=== PATIENT | female | born 1950 | race Caucasian/White ===

== ENCOUNTER 2020-09-23 07:49 | Outpatient (REF) | payer MEDICARE, SELFPAY ==
--- NOTE | 2020-09-23 07:53 | MM_ITS ---
EXAMINATION: MM SCREENING DIGITAL BREAST TOMOSYNTHESIS, BILATERAL CLINICAL INFORMATION: Screening. Asymptomatic. The lifetime risk of breast cancer based on the Tyrer-Cuzick Model is 2%. COMPARISON: Mammography: 10/05/2019, 09/15/2019, 01/11/2014 TECHNIQUE: Digital breast tomosynthesis is performed in both the craniocaudal and mediolateral oblique views along with computer-aided detection (CAD). Synthesized 2D images are generated from the tomosynthesis. FINDINGS: There are scattered areas of fibroglandular density (ACR BI-RADS breast composition Category b). There are no significant masses, abnormal calcifications, or other abnormalities. The axilla and skin contours are unremarkable. MM/MM tomosynthesis screening BI IMPRESSION: No mammographic evidence of malignancy. ASSESSMENT: BI-RADS 1: Negative RECOMMENDATION: Routine annual mammography screening. This patient's information was entered into a reminder system with a target due date for their next mammogram.
== END 2020-09-23 07:50 | disposition home or self-care (01) ==
LOC: HO.MAMMO 07:49
PROVIDERS: PCP Internal Medicine; Visit Provider Internal Medicine
DX: Z12.31 Encounter for screening mammogram for malignant neoplasm of breast (principal)
CPT/HCPCS: 77063; 77067

== ENCOUNTER 2021-10-09 08:15 | Outpatient (REF) | payer MEDICARE, SELFPAY ==
--- NOTE | ~2021-10-09 | MM_ITS ---
EXAMINATION: MM SCREENING DIGITAL BREAST TOMOSYNTHESIS, BILATERAL CLINICAL INFORMATION: Screening. Asymptomatic. The lifetime risk of breast cancer based on the Tyrer-Cuzick Model is 2%. COMPARISON: Mammography: 09/23/2020, 10/05/2019, 09/15/2019, 01/11/2014 TECHNIQUE: Digital breast tomosynthesis is performed in both the craniocaudal and mediolateral oblique views along with computer-aided detection (CAD). Synthesized 2D images are generated from the tomosynthesis. Additional exaggerated right CC view is provided. FINDINGS: There are scattered areas of fibroglandular density (ACR BI-RADS breast composition Category b). There are no significant masses, abnormal calcifications, or other abnormalities. Parenchymal pattern is similar to prior studies. There is no developing density or architectural abnormality. The axilla and skin contours are unremarkable. No significant changes. MM/MM tomosynthesis screening BI IMPRESSION: No mammographic evidence of malignancy. ASSESSMENT: BI-RADS 1: Negative RECOMMENDATION: Routine annual mammography screening. This patient's information was entered into a reminder system with a target due date for their next mammogram.
== END 2021-10-09 08:16 | disposition home or self-care (01) ==
LOC: HO.MAMMO 08:15
PROVIDERS: PCP Internal Medicine; Visit Provider Internal Medicine
DX: Z12.31 Encounter for screening mammogram for malignant neoplasm of breast (principal)
CPT/HCPCS: 77063; 77067

== ENCOUNTER 2022-10-12 08:15 | Outpatient (REF) | payer MEDICARE, SELFPAY ==
--- NOTE | ~2022-10-12 | MM_ITS ---
EXAMINATION: MM SCREENING DIGITAL BREAST TOMOSYNTHESIS, BILATERAL CLINICAL INFORMATION: Screening. Asymptomatic. The lifetime risk of breast cancer based on the Tyrer-Cuzick Model is 1.7%. COMPARISON: Mammography: October 09, 2021 and studies dating back to January 11, 2014 TECHNIQUE: Digital breast tomosynthesis is performed in both the craniocaudal and mediolateral oblique views along with computer-aided detection (CAD). Synthesized 2D images are generated from the tomosynthesis. FINDINGS: There are scattered areas of fibroglandular density (ACR BI-RADS breast composition Category b). There are no significant masses, abnormal calcifications, or other abnormalities. MM/MM tomosynthesis screening BI IMPRESSION: No significant changes ASSESSMENT: BI-RADS 1: Negative RECOMMENDATION: Routine annual mammography screening. This patient's information was entered into a reminder system with a target due date for their next mammogram.
[2022-10-12 08:56] LABS: MANUAL DIFF FLAG NO
[2022-10-12 09:25] LABS: Basophils Absolute Auto 0.1 X10*3/uL (0.0-0.2); Basophils Percent Auto 0.8 % (0-2); Eosinophils Absolute Auto 0.1 X10*3/uL (0.0-0.4); Eosinophils Percent Auto 1.7 % (0-4); Hemoglobin 13.3 g/dl (12.0-16.0); Imm Gran Abs Auto 0.01 X10*3/uL (0.00-0.03); Imm Gran Pct Auto 0.2 % (0.0-0.4); Lymphocytes Absolute Auto 1.5 X10*3/uL (1.2-4.9); Lymphocytes Percent Auto 22.7 % (20-40); Mean Corpuscular HGB Conc 33.3 g/dl (31.0-35.0); Mean Corpuscular Volume 90.3 fL (80.0-98.0); Mean Platelet Volume 10.3 fL (9.4-12.3); Monocytes Absolute Auto 0.6 X10*3/uL (0.1-1.2); Neutrophils Absolute Auto 4.3 x10*3/uL (2.0-8.3); Neutrophils Percent Auto 65.6 % (45-73); Platelet Count 321 X10*3/uL (160-400); Red Blood Count 4.43 X10*6/uL (4.20-5.50); Red Cell Distribution Width 12.5 % (11.0-16.0); White Blood Count 6.6 X10*3/uL (4.8-10.8)
[2022-10-12 10:07] LABS: Alanine Aminotransferase 20 U/L (0-31); Albumin Level 4.6 g/dL (3.5-5.0); Alkaline Phosphatase 104 U/L (39-117); Anion Gap 17 (12-20); Aspartate Amino Transferase 29 U/L (5-31); Bilirubin Total 0.6 mg/dL (0.0-1.0); Blood Urea Nitrogen 23 mg/dL (9-16); Calcium 9.7 mg/dL (8.4-10.2); Carbon Dioxide 26 mmol/L (22-29); Chloride 101 mmol/L (96-108); Cholesterol 199 mg/dL; Estimated Glomerular Filt Rate 49; Glucose Fasting 89 mg/dL (60-99); HDL Cholesterol 73 mg/dL; LDL Cholesterol Calculated 107 mg/dl; Potassium 4.8 mmol/L (3.3-5.1); Sodium 139 mmol/L (135-145); Total Protein 6.9 g/dL (6.5-8.0); Triglycerides 99 mg/dL
[2022-10-12 10:25] LABS: Thyroid Stimulating Hormone 2.52 uIU/mL (0.32-4.0)
== END 2022-10-12 08:16 | disposition home or self-care (01) ==
LOC: HO.MAMMO 08:15
PROVIDERS: PCP Internal Medicine; Visit Provider Internal Medicine
DX: Z12.31 Encounter for screening mammogram for malignant neoplasm of breast (principal); Z13.0 Encounter for screening for diseases of the blood and blood-forming organs and certain disorders involving the immune mechanism; E78.5 Hyperlipidemia, unspecified; E03.9 Hypothyroidism, unspecified; I10 Essential (primary) hypertension
CPT/HCPCS: 36415; 77063; 77067; 80053; 80061; 84443; 85025

== ENCOUNTER 2023-07-11 14:09 | Outpatient (AMB) | payer MEDICARE, SELFPAY ==
--- NOTE | 2023-07-11 14:12 | A.OFFPC_ITS ---
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 Allergies No Known Allergies Allergy (Verified 03/08/22 09:56) Medication List - Last Reconciled 07/12/23 by Jonathan Mckeon MD No Known Home Meds Tobacco use date assessed: 07/11/23 Fall risk assessment: No Falls in past year Last assessed Fall Risk: 07/11/23 Dental Screening Dental Screen Date: 07/11/23 Did you have a dental visit in the last 12 months?: Yes Did you have a dental problem in the last 6 months where you did not have access to dental care?: No Was dental information given to patient?: Patient has dentist HPI Pain/Bruising/Swelling on Left Heel HPI Details injured right foot a week ago PFSH Surgical History History of partial hysterectomy Family History Father Myocardial infarction Mother Colon cancer Maternal Uncle Lung cancer Maternal Grandfather Throat cancer Social History Housing: House Alcohol intake: never Patient Tobacco Use Status: Former Tobacco user e-Cigarette/Vaping Use: Never Used Second Hand Smoke Exposure: Yes service: No Current occupational status: employed Cognitive needs: No Hearing needs: No Vision needs: Yes Questionnaire Thrive Questionnaire Date Thrive assessed: 07/11/23 I am a: Patient What is your living situation today?: I have a steady place to live Within the past 12 months, did the food you bought not last and you didn't have the money to get more?: Never true Within the past 12 months, did you worry whether your food would run out before you got money to buy more?: Never true Do you have trouble paying for medicines?: No Do you have trouble getting transportation to medical appointments?: No Do you have trouble paying your heating and electricity bill?: No Do you have trouble taking care of your child, family member or friend?: No Do you have trouble with day-to-day activities such as bathing, preparing meals, shopping, managing finances, etc.?: No Are you currently unemployed and looking for a job?: No Are you interested in more education?: No Please select the resources that you would like help with: None Currently or been in a relationship where the following occur: no concerns reported AUDIT C Alcohol Use Questionnaire (AUDIT-C) 1. How often do you have a drink containing alcohol?: Never 3. How often do you have six or more drinks on one occasion?: Never Total Score: 0 CHEPE-7 AMB Questionnaire CHEPE-7 Date CHEPE - 7 assessed: 07/11/23 Feeling nervous, anxious, or on edge: 0 = Not at all Not being able to stop or control worryin = Not at all Worrying too much about different things: 0 = Not at all Trouble relaxin = Not at all Being so restless that it is hard to sit still: 0 = Not at all Becoming easily annoyed or irritable: 0 = Not at all Feeling afraid as if something awful might happen: 0 = Not at all Total CHEPE-7 score (0-4 normal; 5-9 mild; 10-14 moderate; 15-21 severe): 0 Source: Developed by Drs. Marcio Hernandes, Tiffanie Yang, Álvaro Keen and colleagues, with an educational doroteo from [employer]. CHEPE-7 Assessment Billing CHEPE-7 Assessment Tool: CHEPE-7 Assessment 72736 Review of Systems Const Denies chills, Denies headache(s) and Denies weight loss ENT Denies headache(s) Card Denies chest pain, Denies syncope, Denies irregular heart rhythm and Denies dyspnea Resp Denies chest congestion, Denies cough and Denies dyspnea GI Denies abdominal pain, Denies change in stool character, Denies nausea and Denies vomiting Musc Denies deformity and Denies joint swelling Neuro Denies syncope and Denies headache(s) Physical exam (Primary Care) Vital Signs: Last Vital Signs Pulse 76 07/11/23 14:13 BP 122/70 07/11/23 14:13 Pulse Ox 97 07/11/23 14:13 Oxygen Delivery Method Room Air 07/11/23 14:13 BMI result Body Mass Index 24.6 Tobacco/Smoking Status: Tobacco use Status Tobacco use date assessed 07/11/23 07/11/23 14:20 Patient Tobacco Use Status Former Tobacco user 07/11/23 14:20 e-Cigarette/Vaping Use Never Used 07/11/23 14:20 Thrive Assessment: Date of Thrive Assessment Date Thrive assessed 07/11/23 07/11/23 14:25 Currently or been in a relationship where the following occur: no concerns reported Const General: cooperative, comfortable, no acute distress and alert Neck Neck: Yes no lymphadenopathy Thyroid: Thyroid normal Resp Effort & Inspection: normal respiratory effort Auscultation: clear to auscultation bilaterally Percussion: percussion normal Cardio Jugular venous distension: no JVD Palpation: normal PMI Rate: regular rate Rhythm: regular rhythm Heart sounds: S1 normal heart sound present and S2 normal heart sound present GI Inspection: Yes normal to inspection Palpation (GI): No hepatosplenomegaly present Skin General skin exam: no rashes or lesions noted Extrem Other: right foot swollen around ankle Assessment and Plan Assessment & Plan (1) Foot pain: Code(s): M79.673 - Pain in unspecified foot Plan: xr Orders: Orders XR foot LT 2V 07/11/23 M79.672 - Pain in left foot Coding Level of Care Code Est Pt Level 3 (16118) Diagnoses Foot pain M79.673 Additional Codes CHEPE-7 Assessment Billing - CHEPE-7 Assessment Tool: CHEPE-7 Assessment 46562 ([id number])
[2023-07-11 14:13] VITALS: BP 122/70; PULSE 76; O2SAT 97; BMI 24.6
== END 2023-07-11 14:34 | disposition home or self-care (01) ==
PROVIDERS: PCP Internal Medicine; Visit Provider Internal Medicine
DX: M79.673 Pain in unspecified foot (principal)
CPT/HCPCS: 99213

== ENCOUNTER 2023-07-11 14:43 | Outpatient (REF) | payer MEDICARE, SELFPAY ==
--- NOTE | ~2023-07-11 | XR_ITS ---
EXAMINATION: XR FOOT, LEFT CLINICAL INFORMATION: Pain. COMPARISON: None available. TECHNIQUE: AP, lateral, and oblique views of the left foot. FINDINGS: No acute fracture or subluxation. Mild multifocal degenerative osteoarthritis. No erosions. No abnormal soft tissue calcifications nor unexpected radiopaque foreign bodies. XR/XR foot LT 2V IMPRESSION: No acute fracture or malalignment. Mild multifocal degenerative osteoarthritis.
== END 2023-07-11 14:44 | disposition home or self-care (01) ==
LOC: HO.XRAY 14:43
PROVIDERS: PCP Internal Medicine; Visit Provider Internal Medicine
DX: M79.672 Pain in left foot (principal)
CPT/HCPCS: 73620

== ENCOUNTER 2023-09-12 10:19 | Outpatient (AMB) | payer MEDICARE, SELFPAY ==
--- NOTE | 2023-09-12 10:44 | MHC.OFFVIS ---
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 Patient reports approx in may while chasing her grand kids in the yard bear footed and hurt her foot with a root that was growing out of the grown. Reports she has had pain since. She was limping for 3 weeks after with constant swelling. In the last 2 weeks her pain is now on her lateral aspect of her ankle. Seen with PCP on 07/11/23 who referred patient for a further evaluation. Denies numbness or tingling in toes. Allergies No Known Allergies Allergy (Verified 09/12/23 10:50) Medication List - Last Reconciled 09/12/23 by Estela Antonio MD No Known Home Meds HPI HPI Comments History of Present Illness Details Last May, while running in backyard, banged/hit heel on a piece of wood. No open wound or laceration. It ached but not sharp pain. Since then, the whole inside of foot was swollen. First time to put pressure on foot without too much pain. But also now going around to lateral. No boot yet. 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 MSK: Tender around left lateral malleolus, with swelling. Slightly tender around left medial malleolus. Swelling and warmth on left dorsal foot. No tenderness over achilles or plantar fascia. No calf tenderness. No ankle instability. Strength is 5/5 in all muscle groups tested. No increased tone noted. Neurological: Neurologic examination of the upper and lower extremities was nonfocal with intact sensation, muscle stretch reflexes and without focal motor deficits . Ramey?s negative bilaterally. Babinski was down going bilaterally. Clonus was negative. Gait is antalgic without loss of balance. Results Reviewed Results Reviewed: I independently reviewed the results of the following: Foot xray normal. Ordering Physician: Jonathan Mckeon MD Date of Service: 07/11/23 Procedure(s): XR foot LT 2V Accession Number(s): [id number] cc: Jonathan Mckeon MD~ EXAMINATION: XR FOOT, LEFT CLINICAL INFORMATION: Pain. COMPARISON: None available. TECHNIQUE: AP, lateral, and oblique views of the left foot. FINDINGS: No acute fracture or subluxation. Mild multifocal degenerative osteoarthritis. No erosions. No abnormal soft tissue calcifications nor unexpected radiopaque foreign bodies. XR/XR foot LT 2V IMPRESSION: No acute fracture or malalignment. Mild multifocal degenerative osteoarthritis. I reviewed records from the following: PCP Assessment & Plan Assessment & Plan (1) Sprain of left ankle: Code(s): S93.402A - Sprain of unspecified ligament of left ankle, initial encounter Qualifiers: Encounter type: initial encounter Involved ligament of ankle: tibiofibular ligament Qualified Code(s): S93.432A - Sprain of tibiofibular ligament of left ankle, initial encounter Plan Suspect that she had a left medial ankle sprain last May that was unfortunately not treated completely. It now involves lateral ankle. We will put her on a short walking boot. To wear while she is up and about. Can remove and elevate the leg when she is resting or lying down. Taught her how to use an ice bucket at least once a day. Will start her on ibuprofen 600 mg t.i.d. for 7 days, to take with full stomach, discuss side effects. Will do follow-up ankle x-ray today. Assessment and plan discussed with patient, and patient was agreeable. All questions were answered thoroughly. Follow-up in 2 months. Estela Antonio MD, JUDSON Board Certified, [place] Board [employer] and Rehabilitation (ABPMR) Board Certified, [place] Board [employer] Electrodiagnostic [employer] (ABEM) Orders: Orders XR ankle LT 2V Today S93.402A - Sprain of unspecified ligament of left ankle, initial encounter Medications: New ibuprofen 600 mg PO TID 21 tabs 0RF 7 days S93.402A - Sprain of unspecified ligament of left ankle, initial encounter Coding Level of Care Code New Pt Level 4 (29368) Diagnoses Sprain of tibiofibular ligament of left ankle, initial encounter S93.432A Encounter type: initial encounter Involved ligament of ankle: tibiofibular ligament
[2023-09-12 10:45] VITALS: BMI 26.1
== END 2023-09-12 11:21 | disposition home or self-care (01) ==
PROVIDERS: PCP Internal Medicine; Visit Provider Physical Medicine & Rehabilitation
DX: S93.432A Sprain of tibiofibular ligament of left ankle, initial encounter (principal)
CPT/HCPCS: 99204

== ENCOUNTER 2023-09-12 10:19 | Outpatient (REF) | payer MEDICARE, SELFPAY ==
--- NOTE | ~2023-09-12 | XR_ITS ---
EXAMINATION: XR ANKLE, LEFT CLINICAL INFORMATION: Sprain of unspecified ligament. COMPARISON: Left foot 07/11/2023. TECHNIQUE: AP, lateral, and mortise views of the left ankle. FINDINGS: Minimal plantar calcaneal spurring. Moderate joint effusion. No acute displaced fracture. Bones are diffusely demineralized. XR/XR ankle LT min 3V IMPRESSION: Moderate joint effusion. No displaced fracture. Recommend follow up imaging in 10-14 days if fracture is suspected.
== END 2023-09-12 10:20 | disposition home or self-care (01) ==
LOC: HO.HOSX 10:19
PROVIDERS: PCP Internal Medicine; Visit Provider Physical Medicine & Rehabilitation
DX: S93.432D Sprain of tibiofibular ligament of left ankle, subsequent encounter (principal); X58.XXXD Exposure to other specified factors, subsequent encounter
CPT/HCPCS: 73610; 99202

== ENCOUNTER 2023-09-26 10:02 | Outpatient (REF) | payer MEDICARE, SELFPAY ==
--- NOTE | ~2023-09-26 | XR_ITS ---
EXAMINATION: XR ANKLE, LEFT CLINICAL INFORMATION: Ankle sprain COMPARISON: 09/12/2023 TECHNIQUE: AP, lateral, and mortise views of the left ankle. FINDINGS: No fracture. Alignment is anatomic. No erosions. Joint spaces are maintained. Persistent soft tissue effusion. XR/XR ankle LT min 3V IMPRESSION: Persistent soft tissue effusion. No acute fracture.
== END 2023-09-26 10:03 | disposition home or self-care (01) ==
LOC: HO.HOSX 10:02
PROVIDERS: Visit Provider Physical Medicine & Rehabilitation
DX: S93.432A Sprain of tibiofibular ligament of left ankle, initial encounter (principal); X58.XXXA Exposure to other specified factors, initial encounter; Y93.9 Activity, unspecified; Y92.9 Unspecified place or not applicable; Y99.9 Unspecified external cause status
CPT/HCPCS: 73610

== ENCOUNTER 2023-10-14 08:24 | Outpatient (REF) | payer MEDICARE, SELFPAY | END 2023-10-14 08:25 | disposition home or self-care (01) | LOC: HO.MAMMO 08:24 | PROVIDERS: PCP Internal Medicine; Visit Provider Internal Medicine | DX: Z12.31 Encounter for screening mammogram for malignant neoplasm of breast (principal) | CPT/HCPCS: 77063; 77067 ==

== ENCOUNTER → 2023-10-14 08:30 | Outpatient (BNV) | payer MEDICARE, SELFPAY | PROVIDERS: PCP Internal Medicine; Visit Provider Radiology Diagnostic Radiology | DX: Z12.31 Encounter for screening mammogram for malignant neoplasm of breast (principal) | CPT/HCPCS: 77063; 77067 ==

== ENCOUNTER 2023-11-13 09:48 | Outpatient (AMB) | payer MEDICARE, SELFPAY ==
--- NOTE | 2023-11-13 09:53 | A.OFFVIS_ITS ---
Intake Vital Signs 11/13/23 09:54 Height 5 ft 4 in Weight 152 lb BMI 26.1 Intake Visit Reasons: ov-Left foot pain heel and arch Intake Note: Hali is a 73 year old female who presents today for a follow up of her left ankle sprain. Injury happened in May of 2023, when she was barefoot in the yard and tripped on a tree root. At her last visit she was fit in a walking boot, given a script for Ibuprofen 800mg, instructed to implement ice and elevation. She has been wearing her boot as directed but discontinued it over the weekend, as she was finding discomfort. She feels that the ankle is feeling better but is experiencing stiffness and discomfort in her arch and toes. She reports that she stepped off a curb wrong and twisted the right knee, she is having pain, swelling and stiffens of the knee. her pain is felt primarily on the medial aspect of the knee. Allergies No Known Allergies Allergy (Verified 09/12/23 10:50) HPI HPI Comments History of Present Illness Details Last May, while running in backyard, banged/hit heel on a piece of wood. No open wound or laceration. It ached but not sharp pain. Since then, the whole inside of foot was swollen. First time to put pressure on foot without too much pain. But also now going around to lateral. No boot yet. No numbness No weakness Suspected that she had a left medial ankle sprain last May that was unfortunately not treated completely. It involved lateral ankle by the time I saw her. Put her on a short walking boot. To wear while she is up and about. Can remove and elevate the leg when she is resting or lying down. Taught her how to use an ice bucket at least once a day. Will start her on ibuprofen 600 mg t.i.d. for 7 days, to take with full stomach, discuss side effects. Will do follow-up ankle x-ray today. Patient says that she started feeling better on the ankle but then started feeling stiffness on the bottom of left foot. She is discontinued the walking boot 6 days ago. Pain on the plantar aspect is worse when she gets up from sitting or lying down position, improves as she walks more. Three weeks ago, she also twisted right knee. Instant swelling noted which has somewhat improved. Denies redness or warmth. Pain with stepping especially stairs. 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 MSK: No more tenderness around malleoli. No more swelling. No tenderness over achilles. Tender on left plantar fascia. No calf tenderness. No ankle instability. Right knee swelling/effusion noted, but no redness or warmth. Tender medially. Positive mild valgus stress test. Negative varus stress. Negative Andreia's sign. Negative anterior or posterior drawer sign. Strength is 5/5 in all muscle groups tested. No increased tone noted. Neurological: Neurologic examination of the upper and lower extremities was nonfocal with intact sensation, muscle stretch reflexes and without focal motor deficits . Ramey?s negative bilaterally. Babinski was down going bilaterally. Clonus was negative. Gait is antalgic due to left plantar fascia without loss of balance. Assessment & Plan Assessment & Plan (1) Acute knee pain: Code(s): M25.569 - Pain in unspecified knee Qualifiers: Laterality: right Qualified Code(s): M25.561 - Pain in right knee Plan: 3 weeks ago, twisted right knee. Still swollen today with pain on medial aspect. No instability on exam. Ice, relative rest and elevate when able. Will refer to PT. We talked about need for MRI. Since symptoms improving, we will continue to treat conservatively as mentioned earlier. Reevaluate 4 weeks if further imaging needed. Left knee x-ray today to rule out acute fracture, though low suspicion. (2) Plantar fasciitis of left foot: Code(s): M72.2 - Plantar fascial fibromatosis Plan: Ankle sprain improved with walking boot but now has plantar fasciitis. Advised use of frozen water bottle to ice and stretch the plantar fascia, BID. Or to use a tennis ball to stretch it. Will give compression sock to wear during the day. Plan Assessment and plan discussed with patient, and patient was agreeable. All questions were answered thoroughly. Follow-up 4 weeks or call sooner if needed. Estela Antonio MD, JUDSON Board Certified, [place] [employer] and Rehabilitation (ABPMR) Board Certified, [place] [employer] Electrodiagnostic [employer] (ABEM) Orders: Orders XR knee RT 3V Today M25.569 - Pain in unspecified knee PT Evaluation and Treatment Today M25.569 - Pain in unspecified knee Coding Level of Care Code Est Pt Level 4 (13654) Diagnoses Acute pain of right knee M25.561 Laterality: right Plantar fasciitis of left foot M72.2
[2023-11-13 09:54] VITALS: BMI 26.1
== END 2023-11-13 11:03 | disposition home or self-care (01) ==
PROVIDERS: PCP Internal Medicine; Visit Provider Physical Medicine & Rehabilitation
DX: M25.561 Pain in right knee (principal); M72.2 Plantar fascial fibromatosis
CPT/HCPCS: 99214

== ENCOUNTER 2023-11-13 09:48 | Outpatient (REF) | payer MEDICARE, SELFPAY ==
--- NOTE | ~2023-11-13 | XR_ITS ---
EXAMINATION: XR KNEE, RIGHT CLINICAL INFORMATION: Pain and swelling COMPARISON: None available. TECHNIQUE: Three views of the right knee. FINDINGS: No fracture or dislocation. No suprapatellar joint effusion. Joint spaces are maintained. Mild chondrocalcinosis. No localized soft tissue swelling the anterior knee. XR/XR knee RT 3V IMPRESSION: Mild degenerative changes of the right knee.
== END 2023-11-13 09:49 | disposition home or self-care (01) ==
LOC: HO.HOSX 09:48
PROVIDERS: PCP Internal Medicine; Visit Provider Physical Medicine & Rehabilitation
DX: M25.561 Pain in right knee (principal); M72.2 Plantar fascial fibromatosis
CPT/HCPCS: 73562; 99212

== ENCOUNTER 2024-10-19 08:28 | Outpatient (REF) | payer MEDICARE, SELFPAY | END 2024-10-19 08:29 | disposition home or self-care (01) | LOC: HO.MAMMO 08:28 | PROVIDERS: PCP Internal Medicine; Visit Provider Internal Medicine | DX: Z12.31 Encounter for screening mammogram for malignant neoplasm of breast (principal) | CPT/HCPCS: 77063; 77067 ==

== ENCOUNTER → 2024-10-19 08:45 | Outpatient (BNV) | payer MEDICARE, SELFPAY | PROVIDERS: PCP Internal Medicine; Visit Provider Internal Medicine | DX: Z12.31 Encounter for screening mammogram for malignant neoplasm of breast (principal) | CPT/HCPCS: 77063; 77067 ==

== ENCOUNTER 2024-12-29 09:51 | Outpatient (AMB) | payer MEDICARE, SELFPAY ==
--- NOTE | 2024-12-29 09:59 | A.OFFPC_ITS ---
Vital Signs 12/29/24 10:01 Height 5 ft 4 in Weight 158 lb 2 oz BMI 27.1 BP 136/60 Blood Pressure Location Lt brachial Position Sitting Pulse 92 Pulse Source Pulse Oximeter Temp 97.1 F Temp Source Temporal Artery Scan Pulse Oximetry (%) 99 Oxygen Delivery Method Room Air Intake Visit Reasons: mireya Dr Mckeon Intake Note: Patient is here today for MIREYA from Dr Mckeon Assistant Customer Service Manager Required: No Director Of Blood: Not Required per policy Accompanied by: Self / Same As Patient Allergies No Known Allergies Allergy (Verified 12/29/24 10:00) Medication List - Last Reconciled 12/29/24 by Portia Rodriguez PA-C multivitamin (Daily Multi-Vitamin tablet) 1 tab PO DAILY Tobacco use date assessed: 12/29/24 Fall risk assessment: No Falls in past year Last assessed Fall Risk: 12/29/24 Dental Screening Dental Screen Date: 12/29/24 Did you have a dental visit in the last 12 months?: Yes Did you have a dental problem in the last 6 months where you did not have access to dental care?: No Was dental information given to patient?: Patient has dentist HPI mireya Dr Mckeon HPI0 Details 74-year-old female with past medical his tory of plantar fasciitis last seen 07/[address] Mckeon coming in for transfer of care.? In review of the n otes, patient has been following with orthopedics for plantar fasciitis.?She has colonoscopy scheduled for 03/2025. Presenting with sciatica that began two months ago with persistent symptoms described as constant pain and shooting pain into the leg, exacerbated by specific movements. She does have a history of sciatica pain however has not had a flare in many years. No prior formal assessments or treatments outside home-based exercises, leading to no current improvement. She also complains of nausea and reflux symptoms associated with certain foods such as carbohydrates and dairy products. Her symptoms are consistent with GERD. Potential underlying factors include mild previous lactose intolerance and consuming large meals. 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 1. Little interest or pleasure in doing things: not at all 2. Feeling down, depressed, or hopeless: not at all 3. Trouble falling or staying asleep, or sleeping too much: not at all 4. Feeling tired or having little energy: not at all 5. Poor appetite or overeating: not at all 6. Feeling bad about yourself - or that you are a failure or have let yourself or your family down: not at all 7. Trouble concentrating on things, such as reading the newspaper or watching television: not at all 8. Moving or speaking so slowly that other people could have noticed. Or the opposite - being so fidgety or restless that you have been moving around a lot more than usual: not at all 9. Thoughts that you would be better off or of hurting yourself in some way: not at all Total score: 0 Depression Screening Interpretation: Negative Depression Screening Done: Yes Source: Developed by Drs. Marcio Hernandes, Tiffanie Yang, Álvaro Keen and colleagues, with an educational doroteo from [employer]. Thrive Questionnaire Date Thrive assessed: 12/29/24 I am a: Patient What is your living situation today?: I have a steady place to live Within the past 12 months, did the food you bought not last and you didn't have the money to get more?: Never true Within the past 12 months, did you worry whether your food would run out before you got money to buy more?: Never true Do you have trouble paying for medicines?: No Do you have trouble getting transportation to medical appointments?: No Do you have trouble paying your heating and electricity bill?: No Do you have trouble taking care of your child, family member or friend?: No Do you have trouble with day-to-day activities such as bathing, preparing meals, shopping, managing finances, etc.?: No Are you currently unemployed and looking for a job?: No Are you interested in more education?: No Please select the resources that you would like help with: None Currently or been in a relationship where the following occur: No concerns reported THRIVE Score: 0 AUDIT C Alcohol Use Questionnaire (AUDIT-C) 2. How many drinks containing alcohol do you have on a typical day when you are drinking?: 1 or 2 3. How often do you have six or more drinks on one occasion?: Never Total Score: 0 CHEPE-7 AMB Questionnaire CHEPE-7 Date CHEPE - 7 assessed: 12/29/24 Feeling nervous, anxious, or on edge: 0 = Not at all Not being able to stop or control worryin = Not at all Worrying too much about different things: 0 = Not at all Trouble relaxin = Not at all Being so restless that it is hard to sit still: 0 = Not at all Becoming easily annoyed or irritable: 0 = Not at all Feeling afraid as if something awful might happen: 0 = Not at all Total CHEPE-7 score (0-4 normal; 5-9 mild; 10-14 moderate; 15-21 severe): 0 Source: Developed by Drs. Marcio Hernandes, Tiffanie Yang, Álvaro Keen and colleagues, with an educational doroteo from [employer]. CHEPE-7 Assessment Billing CHEPE-7 Assessment Tool: CHEPE-7 Assessment 60903 Review of Systems Const Denies body aches, Denies chills, Denies fever(s) and Denies poor appetite Eyes Reports no additional complaints ENT Denies dysphagia and Denies dizziness Card Denies chest pain, Denies lightheadedness and Denies dyspnea Resp Denies dyspnea GI Denies abdominal pain, Denies constipation, Denies dysphagia, Reports dyspepsia, Denies diarrhea, Denies nausea and Denies vomiting Reports no additional complaints Musc Reports no additional complaints and Denies abnormal gait Skin/Breast Reports system reviewed and no additional complaints, except as documented Neuro Denies abnormal gait and Denies dizziness Psych Reports no additional complaints Physical exam (Primary Care) Vital Signs: Last Vital Signs Temp 97.1 F 12/29/24 10:01 Pulse 92 12/29/24 10:01 BP 136/60 12/29/24 10:01 Pulse Ox 99 12/29/24 10:01 Oxygen Delivery Method Room Air 12/29/24 10:01 BMI result Body Mass Index 27.1 Tobacco/Smoking Status: Tobacco use Status Tobacco use date assessed 12/29/24 12/29/24 10:06 Patient Tobacco Use Status Former Tobacco user 12/29/24 10:06 e-Cigarette/Vaping Use Never Used 12/29/24 10:06 PHQ-9: PHQ-9 Score PHQ-9: Total score 0 12/29/24 10:08 Depression Screening Interpretation: Negative Thrive Assessment: Date of Thrive Assessment Date Thrive assessed 12/29/24 12/29/24 10:06 Currently or been in a relationship where the following occur: No concerns reported Const General: cooperative, healthy appearing, comfortable and no acute distress Orientation/consciousness: patient oriented x3 HENMT Head: Yes normocephalic Ears: hearing grossly normal bilaterally General nose exam: Normal external nose present Eyes General: appearance normal, both eyes and all related structures Conjunctivae: conjunctivae normal Neck Neck: Yes full ROM and Yes no lymphadenopathy Resp Effort & Inspection: normal respiratory effort Auscultation: clear to auscultation bilaterally, no crackles, no rales, no rhonchi and no wheezes Cardio Rate: regular rate Rhythm: regular rhythm Back/Spine/Pelvis Other: Tenderness to palpation over right lumbar paraspinal muscles. Positive right straight leg raise test. Intact strength, sensation of bilateral lower extremities Skin General skin exam: no rashes or lesions noted Neuro General: patient oriented x3 Gait exam (Neuro): Normal gait present Extrem General: Yes normal to inspection, Yes full ROM and No edema Psych Affect: normal affect Attitude: cooperative Insight: Good insight present (Psych) Judgement: Good judgement present (Psych) Coding Level of Care Code Est Pt Level 3 (98311) Diagnoses Low back pain M54.50 GERD (gastroesophageal reflux disease) K21.9 Screening for hypercholesterolemia Z13.220 Additional Codes CHEPE-7 Assessment Billing - CHEPE-7 Assessment Tool: CHEPE-7 Assessment 70178 ([id number]) Assessment & Plan Assessment & Plan (1) Low back pain: Code(s): M54.50 - Low back pain, unspecified Category: Medical Plan: For sciatica, an x-ray has been ordered, and physical therapy is the immediate treatment plan to address nerve compression and alleviate pain. Advised to use heat, Tylenol, ibuprofen as needed for pain. Offered a muscle relaxer today which was declined. (2) GERD (gastroesophageal reflux disease): Code(s): K21.9 - Gastro-esophageal reflux disease without esophagitis Category: Medical Plan: Avoid trigger foods such as citrus, tomato products, soda, caffeine, spicy foods and other foods that may be irritating to your stomach. Avoid laying flat 3-4 hours after eating and elevate the head of the bed 30 degrees to prevent acid from moving into the esophagus. Plan to start on omeprazole 20 mg daily for symptomatic relief. (3) Screening for hypercholesterolemia: Code(s): Z13.220 - Encounter for screening for lipoid disorders Category: Medical Plan: Blood Work order Plan This note was constructed using voice recognition software. While every effort has been made to ensure accuracy and baseball club manager, still areas may have been included sometimes these areas may affect the content or meeting of the given symptoms. Total time spent caring for the patient today was 30 minutes. This includes time spent before the visit reviewing the chart, time spent during the visit, and time spent after the visit and documentation. Patient was informed and verbally consented to the use of an ambient scribe for clinic note documentation during this visit. Orders: Orders XR lumbar spine 2-3V Today M54.50 - Low back pain, unspecified PT Evaluation and Treatment Today M54.50 - Low back pain, unspecified Complete Blood Count Auto Diff Today Z00.00 - Encounter for general adult medical examination without abnormal findings Comprehensive Met. Panel Today Z00.00 - Encounter for general adult medical examination without abnormal findings TSH reflex Free T4 Today Z00.00 - Encounter for general adult medical examination without abnormal findings Transglutaminase Ab IgG Today K21.9 - Gastro-esophageal reflux disease without esophagitis Lipid Panel Today Z13.220 - Encounter for screening for lipoid disorders Vitamin B12 and Folate Today Z00.00 - Encounter for general adult medical examination without abnormal findings Vitamin D 25-OH Total Today Z00.00 - Encounter for general adult medical examination without abnormal findings XR DEXA axial skeleton Today Z78.0 - Asymptomatic menopausal state Medications: New omeprazole 20 mg PO DAILY 90 caps 1RF
[2024-12-29 10:01] VITALS: BP 136/60; PULSE 92; TEMP 36.2; O2SAT 99; BMI 27.1
--- OUTSIDE RECORDS SUMMARY | 2024-12-29 11:01 | XMS_ITS ---
Author Organization [facility] Address [address] [place] [address] Care Team Providers Care Dragger Name Role Phone Jonathan Mckeon MD Primary Care Provider Marcio Eli Unavailable [phone] Allergies No Known Allergies REASON FOR VISIT [...] history of malignant neoplasm of gastrointestinal tract (160065459) Family history of colon cancer in mother (Z80.0) Active confirmed Problem Colon cancer screening (186214378) Colon cancer screening (Z12.11) Active confirmed Problem Preprocedural examination (660801727441854) Preprocedural examination (Z01.818) Active confirmed Vital Signs Temperature 96.9 degrees Fahrenheit 12/24/19 25 Blood pressure systolic 001 mm Hg 12/24/19 25 Blood pressure diastolic 01 mm Hg 025 Height 65 in 12/23/2024 Weight 158.8 lbs 12/23/2024 BMI 26.42 kg/m2 12/23/2024 Procedures Procedure Date Ordered Date Performed Result Body Sit e COLONOSCOPY 12/23/2024 N/A Encounters Encounter Location Date Provider Diagnosis [facility] [address] [place] [address] 12/23/2024 Marcio Guthrie Family history of co [...] COLONOSCOPY 12/23/2024 Next Appt Details Provider Name:Marcio Guthrie , 03/17/2025 07:30:00 AM, [address] [place] [address] , [place], [place], [phone], Progress Notes * JENIFER WOODSDOB:[birth year] (74 yo F)Acc No.[id number]:12/23/2024 Progress Notes Patient:?JENIFER WOODS Provider:?Marcio Guthrie MD :1950???Age:74 Y???Sex:Female D ate:12/23/2024 Address:[address] [place], [place] [id number] Pcp:Jonathan Mckeon MD Subjective: * Chief Complaints: * ???1. Patient presents today for a SCREENING COLON. * Medical History:?Denies [place],D M,CVA,Lung disease,renal disease, Reports a negative colonoscopy at [facility] in approx 2003, Lactose-intolerant. * Surgical History:?hysterecto my and removal of 1 ovary 1983, broken wrist left . * Family History:?Mother: dece ased, from colon cancer at age 72, diagnosed with Colon cancer.? No family history of liver cancer,. * Social History:?Tobacco Use:?Tobacco Use/Smoking?Are you a: nonsmoker.?Drugs/Alcohol:?Alcohol Screen?Points: 1, Interpretation: Negative.?Miscellaneous:?Marital status: . 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 ???Nonsmoker; no sig alcohol. * Medications:?Taking Multi Vi tamin/Minerals Tablet Orally , Discontinued MoviPrep 100 GM Solution as directed Orally as directed , Medication List reviewed and reconciled with the patient * Allergies:?N.K.D.A. Objective: * Vitals:?Wt: 158.8 lbs, Ht: 6 5 in, BMI: 26.42 Index, BP: 001/01 mm Hg, Temp: 96.9, Wt-k.03. Assessment: * Assessment: 1.?Family history of colon c ancer in mother - Z80.0 (Primary)???2.?Colon cancer screening - Z12.11???3.?Preprocedural examination - Z01.818??? Plan: * Treatment: 2.?Colon cancer screening?Procedure: COLONOSCOPY* with MACsched for 03/17/25 at 7:30 ammiralax * Immunizations:? Influenza (Not administered - Refused: Patient decision) * Procedure Codes:?66955 DIAGN OSTIC COLONOSCOPY * Preventive Medicine:? ??Counseling:?Care goal follow-up plan:?Above Normal BMI Follow-up?Dietary management education, guidance, and counseling,?BMI management provided?Yes.? ??Urinary Incontinence:?Urinary Incontinence?Assessment:?Absent,?Plan of care documented:?No, reason not specified.? ??Screenings:?Fall Risk Screening?Fall Risk Assessment:?One fall with injury in the past year,?Screening:?One fall with injury in the past year,?Assessment:?Not performed, no reason specified,?Plan of Care:?Documented,?Type of fall plan of care:?Balance, strength and gait training or instruction provided.? * * The named appointment provid er may or may not be the originator of this progress note, and it is not deemed complete until electronically signed by the appointment provider. Sign off status: Pending * Provider:?Marcio Guthrie MD Date:? 025 Generated for Marvin ortega/Nadege/Aguilaritting on:?12/29/2024 11:01 AM EDT
--- OUTSIDE RECORDS SUMMARY | 2024-12-29 11:02 | XMS_ITS | Patient Health Record ---
Author Organization [facility] Address [address] [place] [address] Care Team Providers Care Event Attendant Name Role Phone Linda BALES, Jonathan Primary Care Provider Marcio Eli Unavailable [phone] Allergies No Known Allergies Reason For Referral No Information Medications Medication SIG (Take, Route, Fr equency, Duration) Notes Start Date End Date Status Multi Vitamin/Minerals Orally Active Immunizations Vaccine Route Administration Date Status Comme nts Influenza Unknown 12/23/2024 Refused Problems Problem Type SNOMED Code ICD Code Onset Dates Problem Status W/U Status Risk Notes Problem Pre-surgery evaluation (256266291) Other specified pre-operative examination (V72.83) Active confirmed Problem Colon cancer screening (610745383) Colon cancer screening (V76.51) Active confirmed Problem Colon cancer screening (060898589) Colon cancer screening (Z12.11) Active confirmed Problem Preprocedural examination (540948218400096) Preprocedural examination (Z01.818) Active confirmed Problem Family history of malignant neoplasm of gastrointestinal tract (677510400) Family history of colon cancer in mother (Z80.0) Active confirmed Vital Signs Temperature 96.9 degrees Fahrenheit 12/23/2024 Blood pressure diastolic 01 mm Hg 12/23/2024 Height 65 in 12/23/2024 Blood pressure systolic 001 mm Hg 12/23/2024 Weight 158.8 lbs 12/23/2024 BMI 26.42 kg/m2 12/23/2024 Procedures Procedure Date Ordered Date Performed Result Body Sit e COLONOSCOPY 12/23/2024 N/A Encounters Encounter Location Date Provider Diagnosis [facility] [address] [place] [address] 12/23/2024 Marcio Guthrie Family history of co joseph cancer in mother Z80.0 ; Colon cancer screening Z12.11 and Preprocedural examination Z01.818 Assessments Encounter Date Diagnosis (ICD Code) Assessment Notes Treatment Notes Treatment Clinical Notes Section Notes 12/23/2024 Colon cancer screening (ICD-10 - Z12.11) 12/23/2024 Family history of colon cancer in mother (ICD-10 - Z80.0) 12/23/2024 Preprocedural examination (ICD-10 - Z01.818) Plan Of Treatment Pending Test Test Name Order Date COLONOSCOPY 12/23/2024 Future Test Test Name Order Date COLONOSCOPY 05/25/2014 Next Appt Details Provider Name:Marcio Guthrie , 03/17/2025 07:30:00 AM, [address] [facility] , [place], [place], [id number], Insurance Providers Payer Name Payer Address Payer Phone Subscriber Number Group Number Insured Name Patient Relationship to Insured Coverage Start Date Coverage End Date [facility] [address] [place] [phone] [id number] JENIFER WOODS Self - patient is the insured 4 Medical (General) History Medical History History ICD Code Denies [place],DM,CVA,Lung disease,renal dise ase Reports a negative colonoscopy at [facility] in approx 2003 Lactose-intolerant Surgical History Surgery Date(Month/Year) broken wrist left hysterectomy and removal of 1 ovary 1983
== END 2024-12-29 10:39 | disposition home or self-care (01) ==
LOC: HO.HMCH 09:51
PROVIDERS: PCP Internal Medicine
DX: M54.50 Low back pain, unspecified (principal); K21.9 Gastro-esophageal reflux disease without esophagitis; Z13.220 Encounter for screening for lipoid disorders

== ENCOUNTER 2024-12-29 09:51 | Outpatient (REF) | payer MEDICARE, SELFPAY ==
--- NOTE | ~2024-12-29 | XR_ITS ---
CLINICAL HISTORY: M54.50 - Low back pain, unspecified Three views of the lumbar spine. COMPARISON: None FINDINGS: Five fnb-agm-bdnutjr lumbar type vertebral bodies. Dextrocurvature of the mid lumbar spine. Grade 1 anterolisthesis of L2 on L3 and L4 on L5. No pars defects identified. Vertebral body heights are maintained. Multilevel loss of disc space height with marginal osteophytes and facet joint arthrosis. Neural foraminal narrowing most pronounced at L5-S1. Visualized portions of the bones of the pelvis appear intact. Pelvic phleboliths present. IMPRESSION: 1. No radiographic evidence of acute injury to the lumbar spine. 2. Dextrocurvature of the mid lumbar spine. 3. Grade 1 anterolisthesis of L2 on L3 on L4 on L5. No pars defects identified. 4. Advanced multilevel degenerative changes of the lumbar spine. This document has been electronically signed by: Ian Trejo MD on 12/30/2024 12:58:41
== END 2024-12-29 09:52 | disposition home or self-care (01) ==
LOC: HO.XRAY 09:51
PROVIDERS: PCP Internal Medicine
DX: M54.50 Low back pain, unspecified (principal); K21.9 Gastro-esophageal reflux disease without esophagitis; Z13.220 Encounter for screening for lipoid disorders
CPT/HCPCS: 72100; 96127; 99212

== ENCOUNTER → 2024-12-29 10:50 | Outpatient (BNV) | payer MEDICARE, SELFPAY | PROVIDERS: PCP Internal Medicine; Visit Provider Radiology Diagnostic Radiology | DX: M51.360 Other intervertebral disc degeneration, lumbar region with discogenic back pain only (principal) | CPT/HCPCS: 72100 ==

== ENCOUNTER 2025-01-13 09:30 | Outpatient (REF) | payer MEDICARE, SELFPAY ==
[2025-01-13 10:03] LABS: MANUAL DIFF FLAG NO
--- OUTSIDE RECORDS SUMMARY | 2025-01-13 10:17 | XMS_ITS ---
Author Organization [facility] Address [address] [place] [address] Care Team Providers Care Wedding Day Coordinator Name Role Phone Jonathan Mckeon MD Primary Care Provider Marcio Eli Unavailable [phone] Allergies No Known Allergies REASON FOR VISIT Patient presents today for a SCREENING COLON Medications Medication SIG (Take, Route, Fr equency, Duration) Notes Start Date End Date Status Multi Vitamin/Minerals Orally Active Immunizations Vaccine Route Administration Date Status Comme nts Influenza Unknown 12/23/2024 Refused Problems Problem Type SNOMED Code ICD Code Onset Dates Problem Status W/U Status Risk Notes Problem Family history o f colon cancer in mother (Z80.0) Active confirmed Problem Colon cancer screening (819017648) Colon cancer screening (Z12.11) Active confirmed Problem Preprocedural examination (426814579415347) Preprocedural examination (Z01.818) Active confirmed Vital Signs Temperature 96.9 degrees Fahrenheit 12/24/19 25 Blood pressure systolic 001 mm Hg 12/24/19 25 Blood pressure diastolic 01 mm Hg 025 Height 65 in 12/23/2024 Weight 158.8 lbs 12/23/2024 BMI 26.42 kg/m2 12/23/2024 Procedures Procedure Date Ordered Date Performed Result Body Sit e COLONOSCOPY 12/23/2024 N/A Encounters Encounter Location Date Provider Diagnosis [facility] [address] [place] [phone] 12/23/2024 Marcio Guthrie Family history of co [...] Provider Name:Marcio Guthrie , 03/17/2025 07:30:00 AM, [address] [place] [address], [phone], Progress Notes * JENIFER WOODSDOB:[birth year] (74 yo F)Acc No.[id number]:12/23/2024 Progress Notes Patient:?JENIFER WOODS Provider:?Marcio Guthrie MD :1950???Age:74 Y???Sex:Female D ate:12/23/2024 Address:[address] [place] [address] Pcp:Jonathan Mckeon MD Subjective: * Chief Complaints: * ???1. Patient presents today for a SCREENING COLON. * Medical History:?Denies NC,D M,CVA,Lung disease,renal disease, Reports a negative colonoscopy at [facility] in approx 2003, Lactose-intolerant. * Surgical History:?hysterecto my and removal of 1 ovary 1983, broken wrist left . * Family History:?Mother: dece ased, from colon cancer at age 72, diagnosed with Colon cancer.? No family history of liver cancer,. * Social History:?Tobacco Use:?Tobacco Use/Smoking?Are you a: nonsmoker.?Drugs/Alcohol:?Alcohol Screen?Points: 1, Interpretation: Negative.?Miscellaneous:?Marital status: . 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 ???Nonsmoker; no sig alcohol. * Medications:?Taking Multi [...] administered - Refused: Patient decision) * Procedure Codes:?79910 DIAGN OSTIC COLONOSCOPY * Preventive Medicine:? ??Counseling:?Care [...] MD Date:? 025 Generated for Marvin ortega/Nadege/Aguilaritting on:?01/13/2025 10:17 AM EDT
--- OUTSIDE RECORDS SUMMARY | 2025-01-13 10:17 | XMS_ITS | Patient Health Record ---
Author Organization [facility] Address [address] [place] [address] Care Team Providers Care Hazardous Materials Waste Technician Name Role Phone Linda BALES, Jonathan Primary Care Provider Marcio Eli Unavailable [phone] Allergies No Known Allergies Reason For Referral No Information Medications Medication SIG (Take, Route, Fr equency, Duration) Notes Start Date End Date Status Multi Vitamin/Minerals Orally Active Immunizations Vaccine Route Administration Date Status Comme nts Influenza Unknown 12/23/2024 Refused Problems Problem Type SNOMED Code ICD Code Onset Dates Problem Status W/U Status Risk Notes Problem Pre-surgery evaluation (568936588) Other specified pre-operative examination (V72.83) Active confirmed Problem Colon cancer screening (112598815) Colon cancer screening (V76.51) Active confirmed Problem Colon cancer screening (079163937) Colon cancer screening (Z12.11) Active confirmed Problem Preprocedural examination (046515639099614) Preprocedural examination (Z01.818) Active confirmed Problem Family history of malignant neoplasm of gastrointestinal tract (571522064) Family history of colon cancer in mother (Z80.0) Active confirmed Vital Signs Temperature 96.9 degrees Fahrenheit 12/23/2024 Blood pressure diastolic 01 mm Hg 12/23/2024 Height 65 in 12/23/2024 Blood pressure systolic 001 mm Hg 12/23/2024 Weight 158.8 lbs 12/23/2024 BMI 26.42 kg/m2 12/23/2024 Procedures Procedure Date Ordered Date Performed Result Body Sit e COLONOSCOPY 12/23/2024 N/A Encounters Encounter Location Date Provider Diagnosis [facility] [address] [place] [address] 12/23/2024 Marcio Guthrie Family history of co [...] Name:Marcio Guthrie , 03/17/2025 07:30:00 AM, [address] [facility] , [place], [place], [phone], Insurance Providers Payer Name Payer Address Payer Phone Subscriber Number Group Number Insured Name Patient Relationship to Insured Coverage Start Date Coverage End Date [facility] [address] [place] [phone] [id number] JENIFER WOODS Self - patient is the insured 4 Medical (General) History Medical History History ICD Code Denies ID,DM,CVA,Lung disease,renal dise ase Reports a negative colonoscopy at [facility] in approx 2003 Lactose-intolerant Surgical History Surgery Date(Month/Year) broken wrist left hysterectomy and removal of 1 ovary 1983
[2025-01-13 10:28] LABS: Basophils Percent Auto 0.2 % (0-2); Eosinophils Absolute Auto 0.1 X10*3/uL (0.0-0.4); Eosinophils Percent Auto 1.6 % (0-4); Hematocrit 37.9 % (37.0-47.0); Hemoglobin 12.9 g/dl (12.0-16.0); Imm Gran Abs Auto 0.04 X10*3/uL (0.00-0.03); Imm Gran Pct Auto 0.5 % (0.0-0.4); Lymphocytes Absolute Auto 1.3 X10*3/uL (1.2-4.9); Lymphocytes Percent Auto 16.3 % (20-40); Mean Corpuscular Hemoglobin 30.5 pg (27.0-33.0); Mean Corpuscular Volume 89.6 fL (80.0-98.0); Mean Platelet Volume 10.1 fL (9.4-12.3); Monocytes Absolute Auto 0.5 X10*3/uL (0.1-1.2); Monocytes Percent Auto 6.6 % (2-11); Neutrophils Absolute Auto 6.2 x10*3/uL (2.0-8.3); Neutrophils Percent Auto 74.8 % (45-73); Platelet Count 291 X10*3/uL (160-400); Red Blood Count 4.23 X10*6/uL (4.20-5.50); Red Cell Distribution Width 12.9 % (11.0-16.0); White Blood Count 8.2 X10*3/uL (4.8-10.8)
[2025-01-13 11:16] LABS: Alanine Aminotransferase 43 U/L (0-31); Albumin Level 4.6 g/dL (3.5-5.0); Alkaline Phosphatase 76 U/L (39-117); Anion Gap 13 (12-20); Aspartate Amino Transferase 39 U/L (5-31); Bilirubin Total 0.5 mg/dL (0.0-1.0); Blood Urea Nitrogen 18 mg/dL (9-16); Calcium 10.2 mg/dL (8.4-10.2); Carbon Dioxide 26 mmol/L (22-29); Chloride 104 mmol/L (96-108); Cholesterol 193 mg/dL (<200); Estimated Glomerular Filt Rate 59; Glucose Random 97 mg/dL (60-115); HDL Cholesterol 69 mg/dL (>40); LDL Cholesterol Calculated 112 mg/dL (<100); Potassium 5.1 mmol/L (3.3-5.1); Sodium 138 mmol/L (135-145); TSH reflex Free T4 1.62 uIU/mL (0.32-4.0); Total Protein 7.2 g/dL (6.5-8.0); Triglycerides 62 mg/dL (<150); Vitamin D 25-OH Total 56.5 ng/mL (>30)
[2025-01-13 11:39] LABS: Folate 16.1 ng/mL (> or = 4.0); Vitamin B12 547 pg/mL (200-900)
[2025-01-14 21:24] LABS: Transglutaminase Ab IgG <1.0 U/mL
== END 2025-01-13 09:31 | disposition home or self-care (01) ==
LOC: HO.LAB 09:30
DX: Z00.00 Encounter for general adult medical examination without abnormal findings (principal); K21.9 Gastro-esophageal reflux disease without esophagitis; Z13.220 Encounter for screening for lipoid disorders
CPT/HCPCS: 36415; 80053; 80061; 82306; 82607; 82746; 84443; 85025; 86364

== ENCOUNTER 2025-01-22 08:27 | Outpatient (REF) | payer MEDICARE, SELFPAY ==
--- NOTE | ~2025-01-22 | MM_ITS ---
EXAMINATION: DXA BONE DENSITY AXIAL HISTORY: Z78.0 - Asymptomatic menopausal state TECHNIQUE: [employer] Dual energy absorptiometry (DEXA) of the lumbar spine, total left hip, and femoral neck was performed. COMPARISON: There are no prior studies for comparison. FINDINGS: The bone mineral density of the lumbar spine is 1.380 with a T-score of 1.8, and a Z-score of 3.4. This is indicative of normal bone mineral density. The bone mineral density of the left total hip is 0.795 with a T-score of -1.7, and a Z-score of 0.1. This is indicative of osteopenia. The bone mineral density of the left femoral neck is 0.790 with a T-score of -1.8, and a Z-score of 0.1. This is indicative of osteopenia. FRACTURE RISK: The FRAX index suggests a risk of major osteoporotic fracture of 19.6%, and of hip fracture 4.6%. MM/XR DEXA axial skeleton IMPRESSION: Based on bone mineral density, and according to World Health Organization (WHO) criteria, the diagnosis is consistent with osteopenia. All bone density values are in grams per centimeter squared (g/cm2). Statistically, 68% of repeat scans fall within 1 SD (+/- 0.010 g/cm2 for AP spine L1-L4) and 1 SD (+/- 0.012 g/cm2 for femur total) FRAX is a trademark of the [employer]'s [facility] [employer], a World Health Organization (WHO) Collaborating Center. Electronically signed by: Marcio Butts MD 01/22/2025 09:54 AM EDT
== END 2025-01-22 08:28 | disposition home or self-care (01) ==
LOC: HO.MAMMO 08:27
DX: Z13.820 Encounter for screening for osteoporosis (principal); Z78.0 Asymptomatic menopausal state
CPT/HCPCS: 77080

== ENCOUNTER → 2025-01-22 08:45 | Outpatient (BNV) | payer MEDICARE, SELFPAY | PROVIDERS: Visit Provider Radiology Diagnostic Radiology | DX: E28.39 Other primary ovarian failure (principal) | CPT/HCPCS: 77080 ==

== ENCOUNTER 2025-03-17 06:31 | Day surgery (SDC) | payer MEDICARE, SELFPAY ==
--- OUTSIDE RECORDS SUMMARY | 2024-12-23 09:40 | XMS_ITS ---
Author Organization [facility] Address [address] [place] [address] Care Team Providers Care Woolen Suiting Shrinker Name Role Phone Jonathan Mckeon MD Primary Care Provider Marcio Eli Unavailable [phone] Allergies No Known Allergies REASON FOR VISIT Patient presents today for a SCREENING COLON Medications Medication SIG (Take, Route, Fr equency, Duration) Notes Start Date End Date Status Multi Vitamin/Minerals Orally Active Immunizations Vaccine Route Administration Date Status Comme nts Influenza Unknown 12/23/2024 Refused Problems Problem Type SNOMED Code ICD Code Onset Dates Problem Status W/U Status Risk Notes Problem Family history of malignant neoplasm of gastrointestinal tract (648728892) Family history of colon cancer in mother (Z80.0) Active confirmed Problem Colon cancer screening (726044684) Colon cancer screening (Z12.11) Active confirmed Problem Preprocedural examination (806380294120148) Preprocedural examination (Z01.818) Active confirmed Vital Signs Temperature 96.9 degrees Fahrenheit 12/24/19 25 Blood pressure systolic 001 mm Hg 12/24/19 25 Blood pressure diastolic 01 mm Hg 025 Height 65 in 12/23/2024 Weight 158.8 lbs 12/23/2024 BMI 26.42 kg/m2 12/23/2024 Procedures Procedure Date Ordered Date Performed Result Body Sit e COLONOSCOPY 12/23/2024 N/A Encounters Encounter Location Date Provider Diagnosis [facility] [address] [place] [address] 12/23/2024 Marcio Guthrie Family history of co joseph cancer in mother Z80.0 ; Colon cancer screening Z12.11 and Preprocedural examination Z01.818 Assessments Encounter Date Diagnosis (ICD Code) Assessment Notes Treatment Notes Treatment Clinical Notes Section Notes 12/23/2024 Family history of colon cancer in mother (ICD-10 - Z80.0) 12/23/2024 Colon cancer screening (ICD-10 - Z12.11) 12/23/2024 Preprocedural examination (ICD-10 - Z01.818) Plan Of Treatment Pending Test Test Name Order Date COLONOSCOPY 12/23/2024 Next Appt Details Provider Name:Marcio Ruff Guthrie , 03/17/2025 07:30:00 AM, [address] [place] [address] , [place], [place], [phone], Progress Notes * PEGGY YESSIKERVINDOB:[birth year] (74 yo F)Acc No.[id number]:12/23/2024 Progress Notes Patient: JENIFER GERARDO Provider: Daija Guthrie MD :1950 A ge:74 Y S ex:Female Date:12/23/2024 Address:[address] [place] [address] Pcp:Jonathan Mckeon MD Subjective: * Chief Complaints: * 1 . Patient presents today for a SCREENING COLON. * Medical History: D enies [place],DM,CVA,Lung disease,renal disease, Reports a negative colonoscopy at [facility] in approx 2003, Lactose-intolerant. * Surgical History: h ysterectomy and removal of 1 ovary 1983, broken wrist left . * Family History: M other: , from colon cancer at age 72, diagnosed with Colon cancer. No family history of liver cancer,. * Social History: T obacco Use: T obacco Use/Smoking A re you a: nonsmoker. D rugs/Alcohol: A lcohol Screen P oints: 1, Interpretation: Negative. M iscellaneous: M arital status: . 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 N onsmoker; no sig alcohol. * Medications: T aking Multi Vitamin/Minerals Tablet Orally , Discontinued MoviPrep 100 GM Solution as directed Orally as directed , Medication List reviewed and reconciled with the patient * Allergies: N .K.D.A. Objective: * Vitals: W t: 158.8 lbs, Ht: 65 in, BMI: 26.42 Index, BP: 001/01 mm Hg, Temp: 96.9, Wt-k.03. Assessment: * Assessment: 1. F amily history of colon cancer in mother - Z80.0 (Primary) 2 . C olon cancer screening - Z12.11 3 . P reprocedural examination - Z01.818 ? Plan: * Treatment: 2.?Colon cancer screening?Procedure: COLONOSCOPY* with MACsched for 03/17/25 at 7:30 ammiralax * Immunizations: Influenza (Not administered - Refused: Patient decision) * Procedure Codes: 4 5378 DIAGNOSTIC COLONOSCOPY * Preventive Medicine: Counseling: C are goal follow-up plan: A carole Normal BMI Follow-up D ietary management education, guidance, and counseling, B IN management provided Y es. Urinary Incontinence: U rinary Incontinence A ssessment: A bsent, P juan daniel of care documented: N o, reason not specified. Screenings: F all Risk Screening F all Risk Assessment: O ne fall with injury in the past year, S creening: O ne fall with injury in the past year, A ssessment:?Not performed, no reason specified, P juan daniel of Care: D ocumented, T ype of fall plan of care: B alance, strength and gait training or instruction provided. * * The named appointment provid er may or may not be the originator of this progress note, and it is not deemed complete until electronically signed by the appointment provider. Sign off status: Pending * Provider: Daija Guthrie MD Date: 0 12/23/2024 Generated for Marvin ortega/Nadege/Aguilaritting on: 0 03/02/2025 01:53 PM EDT
[2025-03-15 11:48] VITALS: BMI 27.1
--- NOTE | 2025-03-16 13:09 | HO.ANESPROP2 ---
Documented by User: Margoth Alexander NP 03/16/25 13:10 HPI - Anesthesia Eval Consult details Narrative: 74yo F for Colonoscopy PMFSH Active Problems Active Problems: All Active Problems Degenerative disc disease, lumbar (Acute) Anterolisthesis of lumbar spine (Acute) Screening for hypercholesterolemia (Acute) GERD (gastroesophageal reflux disease) (Acute) Low back pain (Acute) Plantar fasciitis of left foot (Acute) Acute knee pain (Acute) Physical exam (Acute) Past Medical History Medical History GERD (gastroesophageal reflux disease) Family History Family History Father Myocardial infarction Mother Colon cancer Maternal Uncle Lung cancer Maternal Grandfather Throat cancer Surgical History Surgical History History of surgery on left wrist History of partial hysterectomy Social History Social History Housing: House Are you a primary complex care nurse practitioner to a significant other at home: No Do you presently have visiting nurse or other home services: No Alcohol intake: never Patient Tobacco Use Status: Former Tobacco user e-Cigarette/Vaping Use: Never Used Second Hand Smoke Exposure: Yes Use of substances other than those prescribed or required for medical reasons: No Have you been hit, kicked, punched, or otherwise hurt by someone within the past year? 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 Cognitive needs: No Hearing needs: No Vision needs: Yes Meds Allergies Allergy/AdvReac Type Severity Reaction Status Date / Time No Known Allergies Allergy Verified 12/29/24 10:00 Home Medications ?Medication ?Instructions ?Recorded ?Confirmed ?Last Taken ?Type multivitamin (Daily Multi-Vitamin 1 tab PO DAILY 12/29/24 12/29/24 Unknown History tablet) Exam Height,Weight and Vital Signs: Height 5 ft 4 in Weight 71.668 kg Assessment and Plan Assessment Anesthesia Assessment: Chart Reviewed Documented by User: Era Fay MD 03/17/25 08:21 PMFSH Past Medical History Medical History GERD (gastroesophageal reflux disease) Family History Family History Father Myocardial infarction Mother Colon cancer Maternal Uncle Lung cancer Maternal Grandfather Throat cancer Surgical History Surgical History History of surgery on left wrist History of partial hysterectomy History of Problems with Anesthesia: No Social History Social History Housing: House Are you a primary complex care nurse practitioner to a significant other at home: No Do you presently have visiting nurse or other home services: No Alcohol intake: never Patient Tobacco Use Status: Former Tobacco user e-Cigarette/Vaping Use: Never Used Second Hand Smoke Exposure: Yes Use of substances other than those prescribed or required for medical reasons: No Have you been hit, kicked, punched, or otherwise hurt by someone within the past year? 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 Cognitive needs: No Hearing needs: No Vision needs: Yes Meds Allergies Allergy/AdvReac Type Severity Reaction Status Date / Time No Known Allergies Allergy Verified 12/29/24 10:00 Home Medications ?Medication ?Instructions ?Recorded ?Confirmed ?Last Taken ?Type multivitamin (Daily Multi-Vitamin 1 tab PO DAILY 12/29/24 12/29/24 Unknown History tablet) Exam Airway Mallampati Class: II TM Dist: >3cm Neck ROM: Limited Heart: rrr Lungs: cta Assessment and Plan Assessment Anesthesia Assessment: Anesthesia Plan Discussed Final Anesthetic Review History of Problems with Anesthesia: No NPO: Yes ASA Class: II Final Preanesthetic Review: No Changes in Pt Med Stat, Meds/Allgs Chart Reviewed, Consent Obtained/Reviewed and Anes Risks/Benef Reviewed Patient Risk: Low Procedure Risk: Low Anesthetic Plan Anesthetic Plan: MAC: Disposition: Standard PACU
[2025-03-17 06:41] VITALS: BMI 25.5
[2025-03-17 06:54] VITALS: BP 134/59; PULSE 74; RESP 16; TEMP 36.1; O2SAT 97
[2025-03-17] MEDS: Lactated Ringers 1,000 ML 100 ML IVCONT (07:04)
[2025-03-17 08:43] VITALS: BP 102/64; PULSE 74; RESP 17; TEMP 36.1; O2SAT 97
--- NOTE | 2025-03-17 08:48 | PM.OP ---
Brief Operative Note Date of Service: 03/17/25 Pre-op diagnosis: Screening Post-op diagnosis: other (Polyp) Procedure: Colonoscopy to the cecum and TI with bx/removal of polyp Surgeon: Marcio Guthrie MD Anesthesia: MAC Was an Supervisor Capacitor Processing used for this Procedure?: No Estimated blood loss (mL): 2.0 Pathology: other (A. Ascending colon polyp) Condition: stable Disposition: PACU
[2025-03-17 08:58] VITALS: BP 112/59; PULSE 74; RESP 17; TEMP 36.1; O2SAT 97
--- NOTE | 2025-03-17 09:04 | OP_ITS ---
DATE OF SERVICE: 03/17/2025 SURGEON: Marcio Guthrie MD INDICATIONS: The patient presents for evaluation of colorectal cancer screening. Full consent obtained from her for this, including risks of bleeding and perforation. PREOPERATIVE DIAGNOSIS: Colorectal cancer screening. POSTOPERATIVE DIAGNOSIS: Colorectal cancer screening, small colon polyp, diverticulosis, internal hemorrhoids, limited prep in the descending colon. PROCEDURE PERFORMED: Colonoscopy to cecum and terminal ileum with biopsy removal of polyp. ESTIMATED BLOOD LOSS: COMPLICATIONS: ANESTHESIA: Monitored anesthesia care. ASSISTANTS: SPECIMENS: DESCRIPTION OF PROCEDURE: The patient was placed in the left lateral decubitus position. The digital rectal exam revealed no abnormalities. The Olympus video pediatric colonoscope was entered into the rectum and advanced to the cecum. Once in the cecum, I did identify normal-appearing cecal pouch with appendiceal orifice and a normal-appearing ileocecal valve. After a lot of irrigation and suctioning, a good visualization of the cecum was obtained and appeared normal. The terminal ileum was cannulated and appeared normal. The scope was withdrawn back in the colon. The cecum appeared normal. The scope was then slowly withdrawn assessing all mucosal surfaces carefully. Preparation in the ascending colon and transverse colon was very good, but preparation in the descending and sigmoid colon was somewhat limited due to some residual liquid, stool, and small pieces of food matter. In the proximal ascending colon was a flat approximately 4 mm polyp, which was biopsied and removed completely with cold biopsy forceps. I did not visualize any other polyps, colitis, nor angiodysplasia. There was a mild amount of sigmoid diverticulosis. In the rectum, scope was retroflexed visualizing internal hemorrhoids, but no other pathology. The rectal mucosa appeared normal. The scope was straightened and withdrawn from the patient. She tolerated procedure well and was returned to recovery area in stable condition. IMPRESSION: 1. Small colon polyp. 2. Diverticulosis. 3. Internal hemorrhoids. PLAN: The results of the biopsy will be checked. Given the limited prep in portions of the colon, I would recommend she obtain a Cologuard test through her primary care physician to complete the screening for colon cancer. Assuming that is negative then I do not think she would need any further screening colonoscopies even if the polyp we did find today is a tubular adenoma. If the Cologuard test happens to be positive, we would need to repeat the colonoscopy with a better prep. She will otherwise see me on a p.r.n. basis. MD ED Sandoval/LUIS / [id number] MTDD
[2025-03-17 09:13] VITALS: BP 135/59; PULSE 63; RESP 18; TEMP 36.6; O2SAT 98
== END 2025-03-17 09:44 | disposition home or self-care (01) ==
PROVIDERS: Visit Provider Internal Medicine
PROC: 0DJD8ZZ Inspection of Lower Intestinal Tract, Via Natural or Artificial Opening Endoscopic (ICD-10-PCS; CPT 45378; principal; 2025-03-17 07:30)
DX: Z12.11 Encounter for screening for malignant neoplasm of colon (principal); Z80.0 Family history of malignant neoplasm of digestive organs; D12.2 Benign neoplasm of ascending colon; K57.30 Diverticulosis of large intestine without perforation or abscess without bleeding; K64.8 Other hemorrhoids; E73.9 Lactose intolerance, unspecified; Z79.899 Other long term (current) drug therapy; Z98.890 Other specified postprocedural states
CPT/HCPCS: 45380; 88305; J2003; J2371; J2704

== ENCOUNTER 2025-03-30 09:21 | Outpatient (AMB) | payer MEDICARE, SELFPAY ==
--- OUTSIDE RECORDS SUMMARY | 2025-03-17 03:30 | XMS_ITS ---
Author Organization [facility] Address [address] [place] [address] Care Team Providers Care Truck Repair Supervisor Name Role Phone Jonathan Mckeon MD Primary Care Provider Marcio Eli [phone] REASON FOR VISIT screening,fam hx colon ca Encounters Encounter Location Date Provider Diagnosis [facility] [address] [place] [id number] 03/17/2025 Marcio Guthrie Plan Of Treatment No Information Progress Notes * JENIFER WOODSDOB:[birth year] (75 yo F)Acc No.[id number]:03/17/2025 COLON WITH MAC Patient: JENIFER GERARDO Provider: Daija Guthrie MD :1950 A ge:74 Y S ex:Female Date:03/17/2025 Address:[address] [place], [place] [phone] Pcp:Jonathan Mckeon MD Subjective: * Chief Complaints: [...] Date: 03/17/2025 Generated for Nikosi ng/Faxing/eTransmitting on: 03/30/2025 09:53 AM EDT
--- NOTE | 2025-03-30 09:26 | MHC.PC.OV ---
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 Accompanied by: Self / Same As Patient Allergies No Known Allergies Allergy (Verified 03/30/25 09:33) Medication List - Last Reconciled 03/30/25 by Portia Rodriguez PA-C cholecalciferol (vitamin D3) 25 mcg PO DAILY meloxicam 7.5 mg PO DAILY multivitamin (Daily Multi-Vitamin tablet) 1 tab PO DAILY omeprazole 20 mg PO DAILY Tobacco use date assessed: 03/30/25 Fall risk assessment: No Falls in past year Last assessed Fall Risk: 03/30/25 Dental Screening Dental Screen Date: 03/30/25 Did you have a dental visit in the last 12 months?: No Did you have a dental problem in the last 6 months where you did not have access to dental care?: No Was dental information given to patient?: Patient has dentist HPI annual exam HPI Details 74-year-old female with past medical history of plantar fasciitis last seen 12/2024 coming in for annual exam.? Patient completed bone density 01/22/2025 revealing osteopenia, colonoscopy was completed 03/2025 limited exam recommending Cologuard box which was ordered. Presenting with back pain and sciatica management. Back pain has been persistent, with recent exacerbation noted over the last two days. Sciatica symptoms include nerve pain and numbness, particularly affecting the foot, with a pins and needles sensation. Meloxicam 7.5 mg has been used for pain management, with partial relief. Mammogram: Completed 10/2024 repeat in 1 year DEXA: Completed 01/2025 osteopenia Colonoscopy: Completed 03/2025 with recommendations of additional Cologuard box Vaccines: Td updated today, she will think about PCV and shingles PFSH Medical History GERD (gastroesophageal reflux disease) Surgical History History of surgery on left wrist History of partial hysterectomy Family History Father Myocardial infarction Mother Colon cancer Maternal Uncle Lung cancer Maternal Grandfather Throat cancer Social History Housing: House Are you a primary acute care physician to a significant other at home: No Do you presently have visiting nurse or other home services: No Alcohol intake: never Patient Tobacco Use Status: Former Tobacco user e-Cigarette/Vaping Use: Never Used Second Hand Smoke Exposure: Yes service: No Current occupational status: employed 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 1. Little interest or pleasure in doing things: not at all 2. Feeling down, depressed, or hopeless: not at all 3. Trouble falling or staying asleep, or sleeping too much: not at all 4. Feeling tired or having little energy: not at all 5. Poor appetite or overeating: not at all 6. Feeling bad about yourself - or that you are a failure or have let yourself or your family down: not at all 7. Trouble concentrating on things, such as reading the newspaper or watching television: not at all 8. Moving or speaking so slowly that other people could have noticed. Or the opposite - being so fidgety or restless that you have been moving around a lot more than usual: not at all 9. Thoughts that you would be better off or of hurting yourself in some way: not at all Total score: 0 Depression Screening Interpretation: Negative Depression Screening Done: Yes 23108 - PHQ-9 Billing: Yes Source: Developed by Drs. Marcio Hernandes, Tiffanie Yang, Álvaro Keen and colleagues, with an educational doroteo from [employer]. Thrive Questionnaire Date Thrive assessed: 03/30/25 I am a: Patient What is your living situation today?: I have a steady place to live Within the past 12 months, did the food you bought not last and you didn't have the money to get more?: Never true Within the past 12 months, did you worry whether your food would run out before you got money to buy more?: Never true Do you have trouble paying for medicines?: No Do you have trouble getting transportation to medical appointments?: No Do you have trouble paying your heating and electricity bill?: No Do you have trouble taking care of your child, family member or friend?: No Do you have trouble with day-to-day activities such as bathing, preparing meals, shopping, managing finances, etc.?: No Are you currently unemployed and looking for a job?: No Are you interested in more education?: No Please select the resources that you would like help with: None Currently or been in a relationship where the following occur: No concerns reported THRIVE Score: 0 AUDIT C Alcohol Use Questionnaire (AUDIT-C) 1. How often do you have a drink containing alcohol?: Monthly or less Total Score: 1 CHEPE-7 AMB Questionnaire CHEPE-7 Date CHEPE - 7 assessed: 03/30/25 Feeling nervous, anxious, or on edge: 0 = Not at all Not being able to stop or control worryin = Not at all Worrying too much about different things: 0 = Not at all Trouble relaxin = Not at all Being so restless that it is hard to sit still: 0 = Not at all Becoming easily annoyed or irritable: 0 = Not at all Feeling afraid as if something awful might happen: 0 = Not at all Total CHEPE-7 score (0-4 normal; 5-9 mild; 10-14 moderate; 15-21 severe): 0 Source: Developed by Drs. Marcio Hernandes, Tiffanie Yang, Álvaro Keen and colleagues, with an educational doroteo from [employer]. CHEPE-7 Assessment Billing CHEPE-7 Assessment Tool: CHEPE-7 Assessment 89324 Review of Systems Const Denies body aches, Denies fatigue, Denies fever(s), Denies frequent falls, Denies headache(s) and Denies weakness Eyes Reports no additional complaints, Denies change in vision and Denies requires corrective lenses ENT Denies dysphagia, Denies dizziness, Denies facial pain, Denies headache(s) and Denies odynophagia Card Denies chest pain, Denies syncope, Denies irregular heart rhythm, Denies leg edema, Denies lightheadedness and Denies dyspnea Resp Denies cough and Denies dyspnea GI Denies abdominal pain, Denies constipation, Denies dysphagia, Reports dyspepsia, Reports heartburn, Denies diarrhea, Reports nausea (w/ GERD), Denies odynophagia and Denies vomiting Denies urinary frequency, Denies dysuria, Denies urinary hesitancy and Denies urinary urgency Musc Reports as per HPI, Reports back pain and Denies myalgias Skin/Breast Reports system reviewed and no additional complaints, except as documented Neuro Denies dizziness, Denies syncope, Denies frequent falls, Denies headache(s) and Denies weakness Psych Reports no additional complaints Endo Denies fatigue Physical exam (Primary Care) Vital Signs: Last Vital Signs Pulse 78 03/30/25 09:27 BP 132/64 03/30/25 09:27 Pulse Ox 96 03/30/25 09:27 Oxygen Delivery Method Room Air 03/30/25 09:27 BMI result Body Mass Index 25.0 Tobacco/Smoking Status: Tobacco use Status Tobacco use date assessed 03/30/25 03/30/25 09:32 Patient Tobacco Use Status Former Tobacco user 03/30/25 09:32 e-Cigarette/Vaping Use Never Used 03/30/25 09:32 PHQ-9: PHQ-9 Score PHQ-9: Total score 0 03/30/25 10:10 Depression Screening Interpretation: Negative Thrive Assessment: Date of Thrive Assessment Date Thrive assessed 03/30/25 03/30/25 09:32 Currently or been in a relationship where the following occur: No concerns reported Const General: cooperative, healthy appearing, comfortable and no acute distress Orientation/consciousness: patient oriented x3 HENMT Head: Yes normocephalic Ears: hearing grossly normal bilaterally, external ears normal, TM's normal bilaterally and EAC's normal General nose exam: Normal external nose present Face and sinus: Yes normal facial exam and Yes sinuses nontender Mouth: Normal oral and palatal mucosa present and tongue normal Throat: Yes posterior oropharynx normal Eyes General: appearance normal, both eyes and all related structures Conjunctivae: conjunctivae normal Pupils: Equal, round and reactive pupils present EOM: EOMs intact bilaterally and No Nystagmus present Neck Neck: Yes normal visual inspection, Yes full ROM and Yes no lymphadenopathy Chest Chest palpation & inspection: normal inspection of the chest Resp Effort & Inspection: normal respiratory effort Auscultation: clear to auscultation bilaterally, no crackles, no rales, no rhonchi, no wheezes and breath sounds present Cardio Rate: regular rate Rhythm: regular rhythm Peripheral pulses: radial pulses present and dorsalis pedis present GI Inspection: Yes normal to inspection and No Abdominal wall edema Palpation (GI): Soft to palpation, not firm and nontender Auscultation: normal bowel sounds Rectal Exam - Female: deferred General: Yes no CVA tenderness Back/Spine/Pelvis Other: + SLR right side and tenderness to right lower back. No tenderness over the entirety of the spine Back: no CVA tenderness Skin General skin exam: no rashes or lesions noted Neuro General: patient oriented x3 Cranial nerves: Yes Equal, round and reactive pupils present, Yes Midline tongue present, Yes Ability to bilaterally elevate shoulders present and No Nystagmus present Gait exam (Neuro): Normal gait present Extrem General: Yes normal to inspection, Yes full ROM, No no pedal edema and No edema Psych Speech and movement: Normal speech and movement present Affect: normal affect Insight: Good insight present (Psych) Judgement: Good judgement present (Psych) Immunizations Tenivac (PF) 5 Lf unit-2 Lf unit/0.5 mL intramuscular syringe Performing Provider: Portia Rodriguez PA-C [facility] Administered by: HELENA Vazquez on 03/30/25 10:09 Dose Route Admin Location Dispensed Lot Number Expiration Date NDC [employer] 0.5 mL IM Right Deltoid 0.5 mL [id number] 12/08/26 [id number] [employer] Total Dispensed Waste 0.5 mL 0 % VIS Given Date VIS Provided VIS Publication Date 03/30/25 Single Vaccine 21 Eligibility Eligibility Date Funding Source Not [facility] Eligible 03/30/25 Private Coding Level of Care Code Est Pt Prev Care >65y(78977) Diagnoses Physical exam Z00.00 Gastroesophageal reflux disease without esophagitis K21.9 Esophagitis presence: without esophagitis Degenerative disc disease, lumbar M51.369 Colon cancer screening Z12.11 Vitamin D deficiency E55.9 Osteopenia of multiple sites M85.89 Osteopenia location: multiple sites Additional Codes CHEPE-7 Assessment Billing - CHEPE-7 Assessment Tool: CHEPE-7 Assessment 99694 ([id number]) PHQ-9 - 68699 - PHQ-9 Billing: Yes ([id number]) Assessment & Plan Assessment & Plan (1) Physical exam: Code(s): Z00.00 - Encounter for general adult medical examination without abnormal findings Category: Medical Plan: Patient is up-to-date on all recommended routine screenings and vaccinations for her age. She was given tetanus vaccine today. Blood work is up-to-date and has been reviewed with the patient. Plan to follow up on a yearly basis or sooner as needed. (2) GERD (gastroesophageal reflux disease): Code(s): K21.9 - Gastro-esophageal reflux disease without esophagitis Category: Medical Qualifiers: Esophagitis presence: without esophagitis Qualified Code(s): K21.9 - Gastro-esophageal reflux disease without esophagitis Plan: Avoid trigger foods such as citrus, tomato products, soda, caffeine, spicy foods and other foods that may be irritating to your stomach. Avoid laying flat 3-4 hours after eating and elevate the head of the bed 30 degrees to prevent acid from moving into the esophagus. Continue on omeprazole. (3) Degenerative disc disease, lumbar: Code(s): M51.369 - Other intervertebral disc degeneration, lumbar region without mention of lumbar back pain or lower extremity pain Category: Medical Plan: Continue with Meloxicam as needed for pain. She has an appointment later this week with the foxing painter for this concern. (4) Colon cancer screening: Code(s): Z12.11 - Encounter for screening for malignant neoplasm of colon Category: Medical Plan: Colonoscopy completed with poor prep 03/2025. Per Dr. Guthrie Cologuard should be ordered. Orders were placed for Cologuard box. (5) Vitamin D deficiency: Code(s): E55.9 - Vitamin D deficiency, unspecified Category: Medical Plan: Continue on supplementation and continue to monitor blood work. (6) Osteopenia: Comment: DEXA 01/2025 Code(s): M85.80 - Other specified disorders of bone density and structure, unspecified site Category: Medical Qualifiers: Osteopenia location: multiple sites Qualified Code(s): M85.89 - Other specified disorders of bone density and structure, multiple sites Plan: Continue with increased dietary calcium intake of at least 1,500 mg per day in conjunction with Vitamin D supplement. If this is not feasible calcium supplement may used as well. Plan The patient will continue with meloxicam for back pain management, with the option to increase the dose if necessary. Gabapentin may be considered for nerve pain after consultation with Dr. Gomes. An MRI may be ordered to further evaluate the sciatica if symptoms persist. The patient is advised to maintain adequate calcium and vitamin D intake to manage osteopenia. A shingles vaccine is recommended due to the history of multiple episodes. The tetanus vaccine was administered during the visit due to the patient's gardening activities. The patient is encouraged to continue dietary modifications to manage acid reflux and will receive educational materials on foods to avoid. This note was constructed using voice recognition software. While every effort has been made to ensure accuracy and clerical warehouseman, still areas may have been included sometimes these areas may affect the content or meeting of the given symptoms. Total time spent caring for the patient today was 30 minutes. This includes time spent before the visit reviewing the chart, time spent during the visit, and time spent after the visit and documentation. Patient was informed and verbally consented to the use of an ambient scribe for clinic note documentation during this visit. Orders: Orders Td Immunization Today Z23 - Encounter for immunization
[2025-03-30 09:27] VITALS: BP 132/64; PULSE 78; O2SAT 96; BMI 25.0
== END 2025-03-30 10:17 | disposition home or self-care (01) ==
LOC: HO.HMCH 09:22
DX: Z00.00 Encounter for general adult medical examination without abnormal findings (principal); K21.9 Gastro-esophageal reflux disease without esophagitis; M51.369 Other intervertebral disc degeneration, lumbar region without mention of lumbar back pain or lower extremity pain; Z12.11 Encounter for screening for malignant neoplasm of colon; E55.9 Vitamin D deficiency, unspecified; M85.89 Other specified disorders of bone density and structure, multiple sites; Z23 Encounter for immunization

== ENCOUNTER → 2025-03-30 09:21 | Outpatient (BNVA) | payer MEDICARE, SELFPAY | PROVIDERS: PCP Internal Medicine | DX: Z00.00 Encounter for general adult medical examination without abnormal findings (principal); K21.9 Gastro-esophageal reflux disease without esophagitis; M51.360 Other intervertebral disc degeneration, lumbar region with discogenic back pain only; E55.9 Vitamin D deficiency, unspecified; M85.89 Other specified disorders of bone density and structure, multiple sites; Z23 Encounter for immunization | CPT/HCPCS: 90471; 90714; 96127; 99397 ==

== ENCOUNTER 2025-04-01 09:53 | Outpatient (AMB) | payer MEDICARE, SELFPAY ==
--- OUTSIDE RECORDS SUMMARY | 2025-03-17 03:30 | XMS_ITS ---
Author Organization [facility] Address [address] [place] [address] Care Team Providers Care Commercial Real Estate Sales Manager Name Role Phone Jonathan Mckeon MD Primary Care Provider Marcio Eli [phone] REASON FOR VISIT screening,fam hx colon ca Encounters Encounter Location Date Provider Diagnosis [facility] [place] [address] [place] [id number] 03/17/2025 Marcio Guthrie Plan Of Treatment No Information Progress Notes * JENIFER WOODSDOB:[birth year] (75 yo F)Acc No.[id number]:03/17/2025 COLON WITH MAC Patient: JENIFER GERARDO Provider: Diaja Guthrie MD :1950 A ge:74 Y S ex:Female Date:03/17/2025 Address:[address] [place], [place] [phone] Pcp:Jonathan Mckeon MD Subjective: * Chief Complaints: [...] Pending * Provider: Daija Guthrie MD Date: 03/17/2025 Generated for Nikosi ng/Faxing/eTransmitting on: 04/01/2025 10:40 AM EDT
--- NOTE | 2025-04-01 09:56 | A.OFFVIS_ITS ---
Vital Signs 04/01/25 10:00 Height 5 ft 4 in Weight 145 lb BMI 24.9 Intake Visit Reasons: New Problem - Lower Back Pain w/ Sciatica Intake Note: Hali is a 74 year old female who presents today for a new problem visit with complaints of Lower Back Pain right side. Patient was referred by PCP - Portia Rodriguez PA-C . Patient reports that she has had history of Sciatica radiating to leg, ongoing since About October of 2024. Physical therapy was ordered and was advised to use heat, Tylenol and Ibuprofen which gave mild relief. Patient states that she did not attend physical therapy and did not have any injections. Patient reports that the pain has been going on for over 6 months and it radiating down to her foot. Allergies No Known Allergies Allergy (Verified 04/01/25 10:00) Medication List - Last Reconciled 04/01/25 by Estela Antonio MD cholecalciferol (vitamin D3) 25 mcg PO DAILY meloxicam 7.5 mg PO DAILY multivitamin (Daily Multi-Vitamin tablet) 1 tab PO DAILY omeprazole 20 mg PO DAILY HPI Comments Details: Doing well up until October 2024. Denies inciting injuries. Been hurting since then, daily. Right sided, radiating down to hip and foot. Constant numbness on right foot. No bladder/bowel changes. No weakness. Treatment done so far: NSAIDs PFSH Medical History GERD (gastroesophageal reflux disease) Surgical History History of surgery on left wrist History of partial hysterectomy Family History Father Myocardial infarction Mother Colon cancer Maternal Uncle Lung cancer Maternal Grandfather Throat cancer Social History Housing: House Are you a primary adult live in caregiver to a significant other at home: No Do you presently have visiting nurse or other home services: No Alcohol intake: never Patient Tobacco Use Status: Former Tobacco user e-Cigarette/Vaping Use: Never Used Second Hand Smoke Exposure: Yes service: No Current occupational status: employed 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 Patient was appropriately conversant and oriented. Good historian. MSK: No specific abnormalities found on inspection of the spine and all extremities. No pain with palpation over the lumbar area. No point tenderness over SI joint or GT. Lumbar ROM was full. Bilateral hip, knee and ankle ROM WNL. No ligamentous laxity or crepitance. No increased effusion. Straight-leg raising test positive right. FABERE test positive right. Strength is 5/5 in all muscle groups tested. No increased tone noted. Neurological: Right hip flexion 3/5 especially with pain, left hip flexion 4+/5. Bilateral knee extension and dorsiflexion 4+/5. EHL bilateral 5/5. Ramey?s negative bilaterally. Babinski was down going bilaterally. Clonus was negative. Gait is non-antalgic without loss of balance. Vital Signs: BMI result Body Mass Index 24.9 Results Reviewed Results Reviewed: I independently reviewed the results of the following: We looked at lumbar x-rays images together, visualize mild L4-5 anterolisthesis and decreased disc space multilevel. Posterior endplate spurs. Ordering Physician: Portia Rodriguez PA-C Date of Service: 12/29/24 Procedure(s): XR lumbar spine 2-3V Accession Number(s): [id number] cc: Portia Rodriguez PA-C; Jonathan Mckeon MD~ CLINICAL HISTORY: M54.50 - Low back pain, unspecified Three views of the lumbar spine. COMPARISON: None FINDINGS: Five [id number] lumbar type vertebral bodies. Dextrocurvature of the mid lumbar spine. Grade 1 anterolisthesis of L2 on L3 and L4 on L5. No pars defects identified. Vertebral body heights are maintained. Multilevel loss of disc space height with marginal osteophytes and facet joint arthrosis. Neural foraminal narrowing most pronounced at L5-S1. Visualized portions of the bones of the pelvis appear intact. Pelvic phleboliths present. IMPRESSION: 1. No radiographic evidence of acute injury to the lumbar spine. 2. Dextrocurvature of the mid lumbar spine. 3. Grade 1 anterolisthesis of L2 on L3 on L4 on L5. No pars defects identified. 4. Advanced multilevel degenerative changes of the lumbar spine. This document has been electronically signed by: Ian Trejo MD on 12/30/2024 12:58:41 I reviewed records from the following: PCP Assessment & Plan Assessment & Plan (1) Lumbar radiculitis: Code(s): M54.16 - Radiculopathy, lumbar region Category: Medical (2) Lumbar adjacent segment disease with spondylolisthesis: Code(s): M51.369 - Other intervertebral disc degeneration, lumbar region without mention of lumbar back pain or lower extremity pain; M43.16 - Spondylolisthesis, lumbar region Category: Medical Plan Lumbar radiculitis, concern for lumbar disc herniation or spondylolisthesis causing this, L4-5 level or L5-S1 level. Discussed that 1st line of treatment is still physical therapy. Referral place d. Patient is motivated. At the same time, it would be reasonable to obtain lumbar MRI especially to visualize extent of lumbar spondylolisthesis or rule out any severe spinal stenosis or nerve impingement. Assessment and plan discussed with patient, and patient was agreeable. All questions were answered thoroughly. Follow up after MRI. Estela Antonio MD, JUDSON Board Certified, [place] [employer] and [employer] (ABPMR) Board Certified, [place] [employer] Electro[employer] (ABEM) Orders: Orders PT Evaluation and Treatment Today M43.16 - Spondylolisthesis, lumbar region, M51.369 - Other intervertebral disc degeneration, lumbar region without mention of lumbar back pain or lower extremity pain, M54.16 - Radiculopathy, lumbar region MR lumbar spine wo con Today M43.16 - Spondylolisthesis, lumbar region, M51.369 - Other intervertebral disc degeneration, lumbar region without mention of lumbar back pain or lower extremity pain, M54.16 - Radiculopathy, lumbar region Coding Level of Care Code New Pt Level 4 (48302) Diagnoses Lumbar radiculitis M54.16 Lumbar adjacent segment disease with spondylolisthesis M51.369; M43.16
[2025-04-01 10:00] VITALS: BMI 24.9
== END 2025-04-01 10:23 | disposition home or self-care (01) ==
LOC: HO.HOS 09:54
PROVIDERS: Visit Provider Physical Medicine & Rehabilitation
DX: M54.16 Radiculopathy, lumbar region (principal); M51.369 Other intervertebral disc degeneration, lumbar region without mention of lumbar back pain or lower extremity pain; M43.16 Spondylolisthesis, lumbar region
CPT/HCPCS: 99213

== ENCOUNTER → 2025-04-01 09:53 | Outpatient (BNVA) | payer MEDICARE, SELFPAY | PROVIDERS: Visit Provider Physical Medicine & Rehabilitation | DX: M54.16 Radiculopathy, lumbar region (principal); M51.369 Other intervertebral disc degeneration, lumbar region without mention of lumbar back pain or lower extremity pain; M43.16 Spondylolisthesis, lumbar region | CPT/HCPCS: 99212 ==

== ENCOUNTER → 2025-04-20 07:54 | Outpatient (BNV) | payer MEDICARE, SELFPAY | PROVIDERS: Visit Provider Radiology Diagnostic Radiology | DX: M47.815 Spondylosis without myelopathy or radiculopathy, thoracolumbar region (principal); M48.061 Spinal stenosis, lumbar region without neurogenic claudication | CPT/HCPCS: 72148 ==

== ENCOUNTER 2025-04-20 08:04 | Outpatient (REF) | payer MEDICARE, SELFPAY ==
--- OUTSIDE RECORDS SUMMARY | 2025-03-17 03:30 | XMS_ITS ---
Author Organization [facility] Address [address] [place] [address] Care Team Providers Care Rn Oncology Research Name Role Phone Jonathan Mckeon MD Primary Care Provider Marcio Eli [phone] REASON FOR VISIT screening,fam hx colon ca Encounters Encounter Location Date Provider Diagnosis [facility] [place] [address] [place] [id number] 03/17/2025 Marcio Guthrie Plan Of Treatment No Information Progress Notes * JENIFER WOODSDOB:[birth year] (75 yo F)Acc No.[id number]:03/17/2025 COLON WITH MAC Patient: JENIFER GERARDO Provider: Daija Guthrie MD :1950 A ge:74 Y S ex:Female Date:03/17/2025 Address:[address] [place], [place] [phone] Pcp:Jonathan Mckeon MD Subjective: * Chief Complaints: * 1 . Screening,fam hx colon ca. * Medical History: Objective: * Vitals: Assessment: Plan: * Treatment: * * The named appointment provid er may or may not be the originator of this progress note, and it is not deemed complete until electronically signed by the appointment provider. Sign off status: Pending * Provider: Daija Guthrie MD Date: 0 03/17/2025 Generated for Nikosi ng/Faxing/eTransmitting on: 04/20/2025 08:10 AM EDT
--- NOTE | ~2025-04-20 | MR_ITS ---
EXAMINATION: MR LUMBAR SPINE WITHOUT CONTRAST CLINICAL INFORMATION: Radiculopathy, lumbar. Spondylolisthesis, L4-5. COMPARISON: No prior MRI. Correlated to x-ray dated December 29, 2024. TECHNIQUE: MRI of the lumbar spine was obtained using routine sequences without contrast. FINDINGS: Last rib-bearing vertebra labeled T12. No bone marrow STIR signal abnormality. Grade 1 anterolisthesis L4-5 and to a lesser extent L2-3. Grade 1 retrolisthesis, T11-12 and to a lesser extent L1 to. S-shaped curvature of the lumbar spine with a dextroconvex rotoscoliosis apex at L2-3. Bone marrow inhomogeneity throughout the axial skeleton and the bony pelvis. Multilevel marginal osteophyte formation and disc desiccation throughout the axial skeleton. Multilevel Modic type II endplate changes. Conus medullaris and at superior endplate of L1 with normal signal. T11-12: Facet joint hypertrophy. Grade 1 retrolisthesis. Ventral deformity of the thecal sac. No compression upon the lower spinal cord. Bilateral neuroforamina narrowing. T12-L1: Broad-based disc bulging. Facet joint and ligamentum flavum hypertrophy. Reduced AP diameter of the thecal sac. Right neuroforamina and stenosis encroaching the exiting nerve roots. L1-2: Broad-based disc bulging. Facet joint and ligamentum flavum hypertrophy. Reduced AP diameter thecal sac. Bilateral neuroforamina stenosis, right greater than the left side likely encroaching the neural elements. L2-3: Broad-based disc bulging. Facet joint and ligamentum flavum hypertrophy. CSF effacement of the thecal sac central spinal canal and to a lesser extent bilateral neuroforamina stenosis likely encroaching the neural elements of the thecal sac. L3-4: Broad-based disc bulging. Facet joint and ligamentum flavum hypertrophy. Central spinal canal stenosis and left neuroforamina and narrowing likely encroaching the neural elements. L4-5: Grade 1 anterolisthesis. Facet joint and ligamentum flavum hypertrophy resulting in CSF effacement of the thecal sac and central spinal canal stenosis compressing the neural elements. There is bilateral neuroforamina narrowing. L5-S1: There is a broad-based disc bulging. Facet joint and ligamentum flavum hypertrophy compressing the right S1 nerve root on its lateral recess. There is bilateral neuroforamina stenosis) left encroaching the exiting nerve roots of L5. There is central spinal canal stenosis. No prevertebral compartment hematoma, mass or fluid collection. There is renal cortical thinning/atrophy with the multiseptated without fluid density abnormality centered in the left kidney. There is a horseshoe kidney/fetus gross ectopy below the superior mesenteric artery likely the inferior mesenteric artery as well. MR/MR lumbar spine wo con IMPRESSION: Multilevel thoracolumbar spondylosis and dextroconvex rotoscoliosis apex at L2-3 resulting in grade 1 anterolisthesis L5-S1 and grade 1 retrolisthesis T11-12 with the central spinal canal stenosis at L4-5, L5-S1 and to a lesser extent L2-3, L3-4 and L1-2 levels compressing the neural elements of the thecal sac at L4-5 the right S1 nerve root on its lateral recess. 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 Electronically signed by: Tony Bland MD 04/20/2025 09:19 AM EDT
== END 2025-04-20 08:05 | disposition home or self-care (01) ==
LOC: HO.MRI 08:04
PROVIDERS: Visit Provider Physical Medicine & Rehabilitation
DX: M54.16 Radiculopathy, lumbar region (principal); M51.369 Other intervertebral disc degeneration, lumbar region without mention of lumbar back pain or lower extremity pain; M43.16 Spondylolisthesis, lumbar region
CPT/HCPCS: 72148

== ENCOUNTER 2025-05-27 09:00 | Outpatient (AMB) | payer MEDICARE, SELFPAY ==
--- OUTSIDE RECORDS SUMMARY | 2025-03-17 03:30 | XMS_ITS ---
Author Organization [facility] Address [address] [place] [address] Care Team Providers Care Sheet Metal Shop Foreman Name Role Phone Jonathan Mckeon MD Primary Care Provider Marcio Eli [phone] REASON FOR VISIT screening,fam hx colon ca Encounters Encounter Location Date Provider Diagnosis [facility] [place] [facility] [address] [place] [id number] 03/17/2025 Marcio Guthrie Plan Of Treatment No Information Progress Notes * JENIFER WOODSDOB:[birth year] (75 yo F)Acc No.[id number]:03/17/2025 COLON WITH MAC Patient: JENIFER GERARDO Provider: Daija Guthrie MD :1950 A ge:74 Y S ex:Female Date:03/17/2025 Address:[address] [place], [place] [phone] Pcp:Jonathan Mckeon MD Subjective: * Chief Complaints: [...] 0 03/17/2025 Generated for Nikosi ng/Faxing/eTransmitting on: 05/27/2025 10:28 AM EDT
--- NOTE | 2025-05-27 09:12 | A.OFFVIS_ITS ---
Intake Visit Reasons: OV- MRI review/ Lower Back Pain w/ Sciatica Intake Note: Hali is a 75 year old female who presents today as a MRI review of her right Lower Back Pain w/ Sciatica, 04/20/25. At today's visit she states that since last visit she feels that the pain is getting better, physical therapy is going well and they are helping with the right sided numbness/tingling. Allergies No Known Allergies Allergy (Verified 05/27/25 09:18) Medication List - Last Reconciled 05/27/25 by Estela Antonio MD cholecalciferol (vitamin D3) 25 mcg PO DAILY meloxicam 7.5 mg PO DAILY multivitamin (Daily Multi-Vitamin tablet) 1 tab PO DAILY omeprazole 20 mg PO DAILY HPI Comments Details: Doing well up until October 2024. Denies inciting injuries. Been hurting since then, daily. Right sided, radiating down to hip and foot. Constant numbness on right foot. No bladder/bowel changes. No weakness. Treatment done so far: NSAIDs MRI done, showing multilevel spondylosis, scoliosis, grade 1 listhesis L4-5, multilevel disc bulge with resulting foraminal stenosis, central stenosis notable L4-5 and L5-S1, possible encroachment to S1 nerve root. With PT, the constant stingers to right leg is a lot less, unless she's been very active. Less constant now. Numbness on right lower leg/foot is still there. No bladder/bowel changes. Denies kidney past issue. No weakness. [facility] Medical History GERD (gastroesophageal reflux disease) Surgical History History of surgery on left wrist History of partial hysterectomy Family History Father Myocardial infarction Mother Colon cancer Maternal Uncle Lung cancer Maternal Grandfather Throat cancer Social History Housing: House Are you a primary lawn caretaker to a significant other at home: No Do you presently have visiting nurse or other home services: No Alcohol intake: never Patient Tobacco Use Status: Former Tobacco user e-Cigarette/Vaping Use: Never Used Second Hand Smoke Exposure: Yes service: No Current occupational status: employed 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 Patient was appropriately conversant and oriented. Good historian. MSK: No specific abnormalities found on inspection of the spine and all extremities. No pain with palpation over the lumbar area. No point tenderness over SI joint or GT. Lumbar ROM was full. Neurological: Appears stronger on lower extremity strength today. 5/5 on knee extension and dorsiflexion. 4+/5 hip flexion. Babinski was down going bilaterally. Clonus was negative. Gait is non-antalgic without loss of balance. Results Reviewed Results Reviewed: Ordering Physician: Estela Gomes Date of Service: 04/20/25 Procedure(s): MR lumbar spine wo con Accession Number(s): [id number] cc: Portia Rodriguez PA-C; Estela Gomes~ EXAMINATION: MR LUMBAR SPINE WITHOUT CONTRAST CLINICAL INFORMATION: Radiculopathy, lumbar. Spondylolisthesis, L4-5. COMPARISON: No prior MRI. Correlated to x-ray dated December 29, 2024. TECHNIQUE: MRI of the lumbar spine was obtained using routine sequences without contrast. FINDINGS: Last rib-bearing vertebra labeled T12. No bone marrow STIR signal abnormality. Grade 1 anterolisthesis L4-5 and to a lesser extent L2-3. Grade 1 retrolisthesis, T11-12 and to a lesser extent L1 to. S-shaped curvature of the lumbar spine with a dextroconvex rotoscoliosis apex at L2-3. Bone marrow inhomogeneity throughout the axial skeleton and the bony pelvis. Multilevel marginal osteophyte formation and disc desiccation throughout the axial skeleton. Multilevel Modic type II endplate changes. Conus medullaris and at superior endplate of L1 with normal signal. T11-12: Facet joint hypertrophy. Grade 1 retrolisthesis. Ventral deformity of the thecal sac. No compression upon the lower spinal cord. Bilateral neuroforamina narrowing. T12-L1: Broad-based disc bulging. Facet joint and ligamentum flavum hypertrophy. Reduced AP diameter of the thecal sac. Right neuroforamina and stenosis encroaching the exiting nerve roots. L1-2: Broad-based disc bulging. Facet joint and ligamentum flavum hypertrophy. Reduced AP diameter thecal sac. Bilateral neuroforamina stenosis, right greater than the left side likely encroaching the neural elements. L2-3: Broad-based disc bulging. Facet joint and ligamentum flavum hypertrophy. CSF effacement of the thecal sac central spinal canal and to a lesser extent bilateral neuroforamina stenosis likely encroaching the neural elements of the thecal sac. L3-4: Broad-based disc bulging. Facet joint and ligamentum flavum hypertrophy. Central spinal canal stenosis and left neuroforamina and narrowing likely encroaching the neural elements. L4-5: Grade 1 anterolisthesis. Facet joint and ligamentum flavum hypertrophy resulting in CSF effacement of the thecal sac and central spinal canal stenosis compressing the neural elements. There is bilateral neuroforamina narrowing. L5-S1: There is a broad-based disc bulging. Facet joint and ligamentum flavum hypertrophy compressing the right S1 nerve root on its lateral recess. There is bilateral neuroforamina stenosis) left encroaching the exiting nerve roots of L5. There is central spinal canal stenosis. No prevertebral compartment hematoma, mass or fluid collection. There is renal cortical thinning/atrophy with the multiseptated without fluid density abnormality centered in the left kidney. There is a horseshoe kidney/fetus gross ectopy below the superior mesenteric artery likely the inferior mesenteric artery as well. MR/MR lumbar spine wo con IMPRESSION: Multilevel thoracolumbar spondylosis and dextroconvex rotoscoliosis apex at L2-3 resulting in grade 1 anterolisthesis L5-S1 and grade 1 retrolisthesis T11-12 with the central spinal canal stenosis at L4-5, L5-S1 and to a lesser extent L2-3, L3-4 and L1-2 levels compressing the neural elements of the thecal sac at L4-5 the right S1 nerve root on its lateral recess. 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 Electronically signed by: Tony Bland MD 04/20/2025 09:19 AM EDT Assessment & Plan Assessment & Plan (1) Degenerative disc disease, lumbar: Code(s): M51.369 - Other intervertebral disc degeneration, lumbar region without mention of lumbar back pain or lower extremity pain Category: Medical Qualifiers: Disc-related pain type: discogenic back pain and lower extremity pain Qualified Code(s): M51.362 - Other intervertebral disc degeneration, lumbar region with discogenic back pain and lower extremity pain (2) Lumbar radiculitis: Code(s): M54.16 - Radiculopathy, lumbar region Category: Medical (3) Lumbar adjacent segment disease with spondylolisthesis: Code(s): M51.369 - Other intervertebral disc degeneration, lumbar region without mention of lumbar back pain or lower extremity pain; M43.16 - Spondylolisthesis, lumbar region Category: Medical Plan We looked at MRI findings together. Multilevel disc bulge with foraminal stenosis, most notable at L4-5 and L5-S1, possibly impinging on right S1 nerve root. This would explain both lower back pain that is shooting down the right leg and numbness in right foot. Overall lower back pain has improved with PT. I noted that her lower extremity strength has also been improved. Unfortunately numbness would take the longest to get better. We talked about option for sending her for lumbar epidural injections, but since pain is improved, she has opted to wait it out. We will continue to follow her progress. She takes meloxicam once a day, prescribed by PCP. I gave her referral to continue physical therapy. There is incidental finding on left kidney on MRI. We will cc this note to PCP. Patient to call PCP office for follow up. Assessment and plan discussed with patient, and patient was agreeable. All questions were answered thoroughly. Estela Antonio MD, JUDSON Board Certified, [place] [employer] and [employer] (ABPMR) Board Certified, [place] [employer] Electro[employer] (ABEM) Coding Level of Care Code Est Pt Level 4 (63372) Diagnoses Degeneration of intervertebral disc of lumbar region with discogenic back pain and lower extremity pain M51.362 Disc-related pain type: discogenic back pain and lower extremity pain Lumbar radiculitis M54.16 Lumbar adjacent segment disease with spondylolisthesis M51.369; M43.16
--- OUTSIDE RECORDS SUMMARY | 2025-05-27 10:28 | XMS_ITS | Patient Health Record ---
Author Organization [facility] Address [address] [place] [phone] Care Team Providers Care [employer] Consultant Name Role Phone Linda BALES, Jonathan Primary Care Provider Marcio Eli Unavailable [phone] Allergies No Known Allergies Results Component Value Reference Range Notes Pathology Reviewed date:03/21/2025 11:39:12 PM Interpretation: Performing Lab:[facility], [address] [place] [id number] Notes/Report: Reason For Referral No Information Medications Medication SIG (Take, Route, Fr equency, Duration) Notes Start Date End Date Status Multi Vitamin/Minerals Orally Active Immunizations Vaccine Route Administration Date Status Comme nts Influenza Unknown 12/23/2024 Refused Problems Problem Type SNOMED Code ICD Code Onset Dates Problem Status W/U Status Risk Notes Problem Pre-surgery evaluation (625247334) Other specified pre-operative examination (V72.83) Active confirmed Problem Colon cancer screening (892387047) Colon cancer screening (V76.51) Active confirmed Problem Colon cancer screening (128308620) Colon cancer screening (Z12.11) Active confirmed Problem Preprocedural examination (752330630002055) Preprocedural examination (Z01.818) Active confirmed Problem Family history of malignant neoplasm of gastrointestinal tract (723844843) Family history of colon cancer in mother (Z80.0) Active confirmed Vital Signs Temperature 96.9 degrees Fahrenheit 12/23/2024 Blood pressure diastolic 01 mm Hg 12/23/2024 Height 65 in 12/23/2024 Blood pressure systolic 001 mm Hg 12/23/2024 Weight 158.8 lbs 12/23/2024 BMI 26.42 kg/m2 12/23/2024 Procedures Procedure Date Ordered Date Performed Result Body Sit e COLONOSCOPY 12/23/2024 N/A Encounters Encounter Location Date Provider Diagnosis [facility] [address] [address] [place], [place] [id number] 03/17/2025 Marcio Guthrie [facility] [address] [place] [phone] 12/23/2024 Marcio Guthrie Family history of colon cancer in mother Z80.0 ; Preprocedural examination Z01.818 and Colon cancer screening Z12.11 [facility] [address] [place] [phone] 03/09/2025 Marcio Guthrie [facility] [address] [place] [phone] 03/15/2025 Marcio Guthrie [facility] [address] [place] [phone] 03/22/2025 Marcio Guthrie Assessments Encounter Date Diagnosis (ICD Code) Assessment Notes Treatment Notes Treatment Clinical Notes Section Notes 12/23/2024 Preprocedural examination (ICD-10 - Z01.818) Overall, Jenifer appears quite well. Given her age, excellent clinical appearance, her family history of colon cancer, and her last colonoscopy being over 10 years ago, I did recommend a follow-up colonoscopy for further screening purposes. We did review the rationale for this in regard to colon cancer prevention. Full consent has been obtained for this, including risks of bleeding and perforation. The procedure will be done with monitored anesthesia care. Jenifer was comfortable with this plan. Thank you again for allowing me to participate in Jenifer's care. I shall continue to keep you advised of her progress. 12/23/2024 Family history of colon cancer in mother (ICD-10 - Z80.0) Overall, Jenifer appears quite well. Given her age, excellent clinical appearance, her family history of colon cancer, and her last colonoscopy being over 10 years ago, I did recommend a follow-up colonoscopy for further screening purposes. We did review the rationale for this in regard to colon cancer prevention. Full consent has been obtained for this, including risks of bleeding and perforation. The procedure will be done with monitored anesthesia care. Jenifer was comfortable with this plan. Thank you again for allowing me to participate in Jenifer's care. I shall continue to keep you advised of her progress. 12/23/2024 Colon cancer screening (ICD-10 - Z12.11) Overall, Jenifer appears quite well. Given her age, excellent clinical appearance, her family history of colon cancer, and her last colonoscopy being over 10 years ago, I did recommend a follow-up colonoscopy for further screening purposes. We did review the rationale for this in regard to colon cancer prevention. Full consent has been obtained for this, including risks of bleeding and perforation. The procedure will be done with monitored anesthesia care. Jenifer was comfortable with this plan. Thank you again for allowing me to participate in Jenifer's care. I shall continue to keep you advised of her progress. Plan Of Treatment Pending Test Test Name Order Date COLONOSCOPY 12/23/2024 Future Test Test Name Order Date COLONOSCOPY 05/25/2014 Insurance Providers Payer Name Payer Address Payer Phone Subscriber Number Group Number Insured Name Patient Relationship to Insured Coverage Start Date Coverage End Date [facility] [address] [place] [phone] [id number] JENIFER WOODS Self - patient is the insured 4 Medical (General) History Medical History History ICD Code Denies MO,DM,CVA,Lung disease,renal dise ase Reports a negative colonoscopy at [facility] in 2003 Lactose-intolerant Negative screening colonoscopy in 2013 Surgical History Surgery Date(Month/Year) broken wrist left hysterectomy and removal of 1 ovary 1983
== END 2025-05-27 09:57 | disposition home or self-care (01) ==
LOC: HO.HOS 09:01
PROVIDERS: Visit Provider Physical Medicine & Rehabilitation
DX: M51.362 Other intervertebral disc degeneration, lumbar region with discogenic back pain and lower extremity pain (principal); M54.16 Radiculopathy, lumbar region; M51.369 Other intervertebral disc degeneration, lumbar region without mention of lumbar back pain or lower extremity pain; M43.16 Spondylolisthesis, lumbar region
CPT/HCPCS: 99214

== ENCOUNTER → 2025-05-27 09:00 | Outpatient (BNVA) | payer MEDICARE, SELFPAY | PROVIDERS: Visit Provider Physical Medicine & Rehabilitation | DX: M43.16 Spondylolisthesis, lumbar region (principal); M51.362 Other intervertebral disc degeneration, lumbar region with discogenic back pain and lower extremity pain; M54.16 Radiculopathy, lumbar region | CPT/HCPCS: 99212 ==